=== PATIENT | male | born 1955 | race Caucasian/White ===

== ENCOUNTER 2020-08-18 09:19 | Outpatient (REF) | payer OTHER, SELFPAY ==
[2020-08-18 11:18] LABS: Uric Acid 7.3 mg/dL (3.4-7.0)
[2020-08-18 11:41] LABS: Prostate Specific Antigen Scr 0.24 ng/mL (<0.05-4.0)
== END 2020-08-18 09:20 | disposition home or self-care (01) ==
LOC: HO.LAB 09:19
PROVIDERS: PCP Internal Medicine; Visit Provider Internal Medicine
DX: Z12.5 Encounter for screening for malignant neoplasm of prostate (principal); K21.9 Gastro-esophageal reflux disease without esophagitis; M10.9 Gout, unspecified
CPT/HCPCS: 36415; 84153; 84550

== ENCOUNTER 2020-08-31 12:07 | Outpatient (REF) | payer OTHER, SELFPAY ==
--- NOTE | ~2020-08-31 | XR_ITS ---
EXAMINATION: XR FOOT, RIGHT CLINICAL INFORMATION: Pain in right toes COMPARISON: None TECHNIQUE: AP, lateral, and oblique views of the right foot. FINDINGS: No acute visible fracture or dislocation. Suggestion of a slight cortical erosion at the medial aspect of the first distal metatarsal metadiaphysis. Mild spurring of the dorsal midfoot. Joint spaces and alignment are maintained. Soft tissues are unremarkable. XR/XR foot RT min 3V IMPRESSION: 1. No acute visible fracture or dislocation. 2. Suggestion of a slight cortical erosion at the medial aspect of the first distal metatarsal metadiaphysis.
== END 2020-08-31 12:08 | disposition home or self-care (01) ==
LOC: HO.XRAY 12:07
PROVIDERS: PCP Internal Medicine; Visit Provider Internal Medicine
DX: M79.674 Pain in right toe(s) (principal)
CPT/HCPCS: 73630

== ENCOUNTER 2020-10-21 11:23 | Outpatient (REF) | payer OTHER, SELFPAY ==
[2020-10-21 12:00] LABS: MANUAL DIFF FLAG NO
[2020-10-21 12:09] LABS: Basophils Percent Auto 0.5 % (0-2); Eosinophils Absolute Auto 0.1 X10*3/uL (0.0-0.4); Eosinophils Percent Auto 1.5 % (0-4); Hematocrit 42.1 % (42-52); Hemoglobin 14.5 g/dl (14.0-18.0); Imm Gran Abs Auto 0.02 X10*3/uL (0.00-0.03); Imm Gran Pct Auto 0.3 % (0.0-0.4); Lymphocytes Absolute Auto 1.9 X10*3/uL (1.2-4.9); Lymphocytes Percent Auto 31.4 % (20-40); Mean Corpuscular HGB Conc 34.4 g/dl (31.0-36.0); Mean Corpuscular Hemoglobin 31.8 pg (27.0-33.0); Mean Corpuscular Volume 92.3 fL (80-98); Mean Platelet Volume 10.3 fL (9.4-12.4); Monocytes Absolute Auto 0.4 X10*3/uL (0.1-1.2); Monocytes Percent Auto 6.2 % (2-11); Neutrophils Absolute Auto 3.6 X10*3/uL (2.0-8.3); Neutrophils Percent Auto 60.1 % (45-73); Platelet Count 221 X10*3/uL (160-400); Red Blood Count 4.56 X10*6/uL (4.60-5.80); Red Cell Distribution Width 13.5 % (11.0-16.0)
[2020-10-21 12:49] LABS: Free T4 (Free Thyroxine) 0.82 ng/dL (0.71-1.85); Prostate Specific Antigen Scr 0.19 ng/mL (<0.05-4.0); Thyroid Stimulating Hormone 1.04 uIU/mL (0.32-4.0)
[2020-10-21 12:58] LABS: Alanine Aminotransferase 22 U/L (0-40); Albumin Level 4.2 g/dL (3.5-5.0); Alkaline Phosphatase 85 U/L (39-117); Anion Gap 15 (12-20); Aspartate Amino Transferase 17 U/L (5-37); Bilirubin Total 0.9 mg/dL (0.0-1.0); Blood Urea Nitrogen 15 mg/dL (9-16); Calcium 9.4 mg/dL (8.4-10.2); Carbon Dioxide 23 mmol/L (22-29); Chloride 107 mmol/L (96-108); Cholesterol 192 mg/dL; Estimated Glomerular Filt Rate > 60; Glucose Random 94 mg/dL (60-115); HDL Cholesterol 36 mg/dL; LDL Cholesterol Calculated 115 mg/dl; Potassium 4.5 mmol/L (3.3-5.1); Sodium 140 mmol/L (135-145); Total Protein 6.6 g/dL (6.5-8.0); Triglycerides 207 mg/dL; Uric Acid 6.2 mg/dL (3.4-7.0)
[2020-10-21 13:34] LABS: Folate > 20.0 ng/mL (> or = 4.0); Vitamin B12 546 pg/mL (200-900)
== END 2020-10-21 11:24 | disposition home or self-care (01) ==
LOC: HO.LAB 11:23
PROVIDERS: PCP Internal Medicine; Visit Provider Internal Medicine
DX: I10 Essential (primary) hypertension (principal); E78.00 Pure hypercholesterolemia, unspecified; M10.9 Gout, unspecified; Z12.5 Encounter for screening for malignant neoplasm of prostate
CPT/HCPCS: 36415; 80053; 80061; 82607; 82746; 84153; 84439; 84443; 84550; 85025

== ENCOUNTER → 2021-01-07 14:28 | Outpatient (BNVA) | payer OTHER, SELFPAY | PROVIDERS: PCP Internal Medicine; Referring Provider Internal Medicine; Visit Provider Surgery | DX: L72.0 Epidermal cyst (principal) | CPT/HCPCS: 99212 ==

== ENCOUNTER 2021-11-18 08:09 | Outpatient (REF) | payer MEDICARE, SELFPAY ==
[2021-11-18 10:48] LABS: MANUAL DIFF FLAG NO
[2021-11-18 10:59] LABS: Basophils Percent Auto 0.8 % (0-2); Eosinophils Absolute Auto 0.1 X10*3/uL (0.0-0.4); Eosinophils Percent Auto 2.3 % (0-4); Hematocrit 42.2 % (42.0-52.0); Hemoglobin 14.5 g/dl (14.0-18.0); Imm Gran Abs Auto 0.01 X10*3/uL (0.00-0.03); Imm Gran Pct Auto 0.2 % (0.0-0.4); Lymphocytes Absolute Auto 1.9 X10*3/uL (1.2-4.9); Lymphocytes Percent Auto 35.6 % (20-40); Mean Corpuscular HGB Conc 34.4 g/dl (31.0-36.0); Mean Corpuscular Hemoglobin 32.5 pg (27.0-33.0); Mean Corpuscular Volume 94.6 fL (80.0-98.0); Mean Platelet Volume 10.4 fL (9.4-12.4); Monocytes Absolute Auto 0.4 X10*3/uL (0.1-1.2); Monocytes Percent Auto 7.4 % (2-11); Neutrophils Absolute Auto 2.8 x10*3/uL (2.0-8.3); Neutrophils Percent Auto 53.7 % (45-73); Platelet Count 225 X10*3/uL (160-400); Red Blood Count 4.46 X10*6/uL (4.60-5.80); Red Cell Distribution Width 12.8 % (11.0-16.0); White Blood Count 5.3 X10*3/uL (4.8-10.8)
[2021-11-18 11:04] LABS: Alanine Aminotransferase 20 U/L (0-40); Alkaline Phosphatase 81 U/L (39-117); Anion Gap 15 (12-20); Aspartate Amino Transferase 17 U/L (5-37); Bilirubin Total 0.7 mg/dL (0.0-1.0); Blood Urea Nitrogen 19 mg/dL (9-16); Calcium 9.1 mg/dL (8.4-10.2); Carbon Dioxide 26 mmol/L (22-29); Chloride 106 mmol/L (96-108); Cholesterol 227 mg/dL; Estimated Glomerular Filt Rate > 60; Glucose Random 92 mg/dL (60-115); HDL Cholesterol 33 mg/dL; LDL Cholesterol Calculated 146 mg/dl; Potassium 4.7 mmol/L (3.3-5.1); Sodium 142 mmol/L (135-145); Total Protein 6.6 g/dL (6.5-8.0); Triglycerides 240 mg/dL; Uric Acid 8.3 mg/dL (3.4-7.0)
[2021-11-18 11:24] LABS: Free T4 (Free Thyroxine) 0.84 ng/dL (0.71-1.85); Prostate Specific Antigen Scr 0.15 ng/mL (<0.05-4.0); Thyroid Stimulating Hormone 0.91 uIU/mL (0.32-4.0)
[2021-11-18 11:45] LABS: Folate > 20.0 ng/mL (> or = 4.0); Vitamin B12 486 pg/mL (200-900)
== END 2021-11-18 08:10 | disposition home or self-care (01) ==
LOC: HO.10HDL 08:09
PROVIDERS: Visit Provider Internal Medicine
DX: E78.00 Pure hypercholesterolemia, unspecified (principal); Z12.5 Encounter for screening for malignant neoplasm of prostate
CPT/HCPCS: 36415; 80053; 80061; 82607; 82746; 84153; 84439; 84443; 84550; 85025

== ENCOUNTER 2022-05-16 08:36 | Outpatient (REF) | payer BC, SELFPAY ==
[2022-05-16 11:29] LABS: Alanine Aminotransferase 21 U/L (0-40); Alkaline Phosphatase 62 U/L (39-117); Anion Gap 10 (12-20); Aspartate Amino Transferase 14 U/L (5-37); Bilirubin Total 0.7 mg/dL (0.0-1.0); Blood Urea Nitrogen 15 mg/dL (9-16); Calcium 8.8 mg/dL (8.4-10.2); Carbon Dioxide 29 mmol/L (22-29); Chloride 110 mmol/L (96-108); Cholesterol 210 mg/dL; Estimated Glomerular Filt Rate > 60; Glucose Random 95 mg/dL (60-115); HDL Cholesterol 32 mg/dL; LDL Cholesterol Calculated 144 mg/dl; Potassium 4.5 mmol/L (3.3-5.1); Sodium 144 mmol/L (135-145); Total Protein 6.2 g/dL (6.5-8.0); Triglycerides 173 mg/dL; Uric Acid 6.5 mg/dL (3.4-7.0)
== END 2022-05-16 08:37 | disposition home or self-care (01) ==
LOC: HO.10HDL 08:36
PROVIDERS: Visit Provider Internal Medicine
DX: E78.00 Pure hypercholesterolemia, unspecified (principal); M10.9 Gout, unspecified
CPT/HCPCS: 36415; 80053; 80061; 84550

== ENCOUNTER 2022-07-05 10:11 | Outpatient (REF) | payer MEDICARE, SELFPAY ==
--- NOTE | ~2022-07-05 | XR_ITS ---
EXAMINATION: Chest and lumbar spine. CLINICAL INDICATIONS: Pain in right shoulder and low back pain. COMPARISON: Chest x-ray 09/20/2018. TECHNIQUE: Chest 2 views. Lumbar spine 3 views. FINDINGS: Chest: The lungs are well-expanded with platelike atelectasis in the lingula. Rest lungs are clear. Heart size and pulmonary vascularity is normal. No gross bony abnormality seen. LUMBAR SPINE: There is normal lumbar lordosis. There is grade 1 anterolisthesis L5 over S1. Rest of the vertebral alignment and vertebral heights are normal. Mild loss of L5-S1 disc height is seen. No aggressive lytic or sclerotic process seen. XR/XR chest 2V IMPRESSION: Platelike atelectasis in the lingula. Grade 1 anterolisthesis L5 over S1 with degenerative disc changes at L5-S1 disc level.
--- NOTE | ~2022-07-05 | XR_ITS ---
EXAMINATION: Chest and lumbar spine. CLINICAL INDICATIONS: Pain in right shoulder and low back pain. COMPARISON: Chest x-ray 09/20/2018. TECHNIQUE: Chest 2 views. Lumbar spine 3 views. FINDINGS: Chest: The lungs are well-expanded with platelike atelectasis in the lingula. Rest lungs are clear. Heart size and pulmonary vascularity is normal. No gross bony abnormality seen. LUMBAR SPINE: There is normal lumbar lordosis. There is grade 1 anterolisthesis L5 over S1. Rest of the vertebral alignment and vertebral heights are normal. Mild loss of L5-S1 disc height is seen. No aggressive lytic or sclerotic process seen. XR/XR lumbar spine 2-3V IMPRESSION: Platelike atelectasis in the lingula. Grade 1 anterolisthesis L5 over S1 with degenerative disc changes at L5-S1 disc level.
== END 2022-07-05 10:12 | disposition home or self-care (01) ==
LOC: HO.XRAY 10:11
PROVIDERS: PCP Internal Medicine; Visit Provider Internal Medicine
DX: M25.511 Pain in right shoulder (principal); M54.50 Low back pain, unspecified
CPT/HCPCS: 71046; 72100

== ENCOUNTER 2022-08-08 13:59 | Outpatient (RCR) | payer MEDICARE, SELFPAY ==
--- NOTE | 2022-08-08 17:22 | MHC.PT.EP ---
[facility] [place] [facility] [place] [facility] [place] [facility] [address] Gregorio Ramirez [address] [phone] F: [phone] F: [phone] F: [phone] F: [phone] Physical Therapy Plan of Care Date of Evaluation: Date of Surgery: N/A Diagnosis: pain in right shoulder (RL) Assessment: pt is a 67 y/o male presenting to physical therapy w/ referring diagnosis of M25.511 pain in right shoulder. pt's signs and symptoms may be indicative of OA versus referred pain from RTC. Impairments include pain, decreased range of motion, decreased strength, impaired functional mobility, impaired postural awareness, and altered ambulation mechanics. pt is a good candidate for skilled PT due to age, potential remediation of impairments, typical disease/condition progression and prognosis, comorbidities, and motivation. pt would benefit from skilled PT intervention to provide a tailored strengthening and stretching exercise program, functional training, gait training, postural re-training, neuromuscular re-education, modalities as needed for pain, equipment safety demonstration. Frequency and Duration: The patient will be seen 2x/wk for 4 wks Short Term Goals: pt will be I w/ HEP to promote self-management of condition. pt will improve R shoulder flexion by 10* to promote ease in reaching for objects on higher shelves. [employer] Sdet Goals: pt will improve R deltoid strength to 5/5 to promote ease in upper body ADLs. pt will demonstrate coordinated breath w/ lifting to promote improved neuromuscular coordination. Treatment Plan: Modalities to reduce pain, spasms and effusion. Manual therapy to restore motion and function. Therapeutic exercise to improve strength and flexibility. Neuromuscular re-education for posture and balance. Therapeutic activities to return to functional activities of daily living. Electronically signed by: Tammy Dos Santos PT, DPT Please sign and return to therapist. Thank you for your referral.
--- NOTE | 2022-08-15 10:21 | MHC.PT.DC ---
[facility] [place] Office [place] Office [place] Office [address] Gregorio Ramirez [address] [facility] [phone] F: [phone] F: [phone] F: [phone] F: [phone] Physical Therapy Discharge Report Diagnosis: pain in right shoulder (RL) Date of Surgery: N/A Date of Evaluation: 08/08/22 Date of Discharge: 08/15/22 Treatments to Date: 1 Cancellations to Date: 0 No Shows to Date: 0 Discharge Status: Patient Elected to Stop Discharge Summary: The patient attended his initial evaluation, scheduled follow-up appointments, then discharged himself due to high co-pay. He is discharged from this physical therapy plan of care per his request. Electronically signed by: Tammy Dos Santos PT, DPT Please sign and return to therapist. Thank you for your referral.
== END 2022-08-15 10:21 | disposition home or self-care (01) ==
LOC: HO.PT 13:59
PROVIDERS: PCP Internal Medicine; Visit Provider Internal Medicine
DX: M25.511 Pain in right shoulder (principal)
CPT/HCPCS: 97112; 97162

== ENCOUNTER 2022-08-30 08:13 | Outpatient (REF) | payer MEDICARE, SELFPAY ==
[2022-08-30 11:04] LABS: Alanine Aminotransferase 16 U/L (0-40); Albumin Level 3.8 g/dL (3.5-5.0); Alkaline Phosphatase 72 U/L (39-117); Anion Gap 11 (12-20); Aspartate Amino Transferase 14 U/L (5-37); Bilirubin Total 0.8 mg/dL (0.0-1.0); Blood Urea Nitrogen 15 mg/dL (9-16); Carbon Dioxide 26 mmol/L (22-29); Chloride 110 mmol/L (96-108); Cholesterol 180 mg/dL; Estimated Glomerular Filt Rate > 60; Glucose Random 91 mg/dL (60-115); HDL Cholesterol 27 mg/dL; LDL Cholesterol Calculated 122 mg/dl; Potassium 4.2 mmol/L (3.3-5.1); Sodium 143 mmol/L (135-145); Total Protein 6.4 g/dL (6.5-8.0); Triglycerides 157 mg/dL
== END 2022-08-30 08:14 | disposition home or self-care (01) ==
LOC: HO.10HDL 08:13
PROVIDERS: Visit Provider Internal Medicine
DX: E78.00 Pure hypercholesterolemia, unspecified (principal)
CPT/HCPCS: 36415; 80053; 80061

== ENCOUNTER 2023-02-28 08:40 | Outpatient (REF) | payer BC, SELFPAY ==
[2023-02-28 10:45] LABS: MANUAL DIFF FLAG NO
[2023-02-28 10:47] LABS: Basophils Percent Auto 0.7 % (0-2); Eosinophils Absolute Auto 0.2 X10*3/uL (0.0-0.4); Eosinophils Percent Auto 2.7 % (0-4); Hemoglobin 14.9 g/dl (14.0-18.0); Imm Gran Abs Auto 0.01 X10*3/uL (0.00-0.03); Imm Gran Pct Auto 0.2 % (0.0-0.4); Lymphocytes Absolute Auto 2.2 X10*3/uL (1.2-4.9); Lymphocytes Percent Auto 36.2 % (20-40); Mean Corpuscular HGB Conc 34.7 g/dl (31.0-36.0); Mean Corpuscular Hemoglobin 32.3 pg (27.0-33.0); Mean Corpuscular Volume 93.1 fL (80.0-98.0); Mean Platelet Volume 10.5 fL (9.4-12.4); Monocytes Absolute Auto 0.4 X10*3/uL (0.1-1.2); Monocytes Percent Auto 5.8 % (2-11); Neutrophils Absolute Auto 3.3 x10*3/uL (2.0-8.3); Neutrophils Percent Auto 54.4 % (45-73); Platelet Count 223 X10*3/uL (160-400); Red Blood Count 4.62 X10*6/uL (4.60-5.80); Red Cell Distribution Width 12.7 % (11.0-16.0)
[2023-02-28 11:06] LABS: Alanine Aminotransferase 17 U/L (0-40); Alkaline Phosphatase 81 U/L (39-117); Anion Gap 14 (12-20); Aspartate Amino Transferase 17 U/L (5-37); Bilirubin Total 0.7 mg/dL (0.0-1.0); Blood Urea Nitrogen 16 mg/dL (9-16); Calcium 9.2 mg/dL (8.4-10.2); Carbon Dioxide 26 mmol/L (22-29); Chloride 109 mmol/L (96-108); Cholesterol 156 mg/dL (<200); Estimated Glomerular Filt Rate > 60; Glucose Random 92 mg/dL (60-115); HDL Cholesterol 32 mg/dL (>40); LDL Cholesterol Calculated 96 mg/dL (<100); Potassium 4.1 mmol/L (3.3-5.1); Sodium 145 mmol/L (135-145); Total Protein 6.7 g/dL (6.5-8.0); Triglycerides 142 mg/dL (<150)
[2023-02-28 11:22] LABS: Free T4 (Free Thyroxine) 0.78 ng/dL (0.71-1.85); Thyroid Stimulating Hormone 1.06 uIU/mL (0.32-4.0)
[2023-02-28 11:36] LABS: Folate 13.6 ng/mL (> or = 4.0); Prostate Specific Antigen Scr 0.15 ng/mL (<0.05-4.0)
[2023-03-02 14:44] LABS: Vitamin B12 502 pg/mL (200-900)
== END 2023-02-28 08:41 | disposition home or self-care (01) ==
LOC: HO.10HDL 08:40
PROVIDERS: Visit Provider Internal Medicine
DX: Z12.5 Encounter for screening for malignant neoplasm of prostate (principal); E78.00 Pure hypercholesterolemia, unspecified
CPT/HCPCS: 36415; 80053; 80061; 82607; 82746; 84153; 84439; 84443; 85025

== ENCOUNTER 2023-03-03 10:46 | Outpatient (AMB) | payer BC, SELFPAY ==
[2023-03-03 10:47] VITALS: BP 130/80; PULSE 86; O2SAT 98; BMI 27.3
--- NOTE | 2023-03-03 10:48 | MHC.PC.OV ---
Vital Signs 03/03/23 10:47 Height 5 ft 7 in Weight 174 lb 0.8 oz BMI 27.3 BP 130/80 Blood Pressure Location Lt brachial Position Sitting Pulse 86 Pulse Source Pulse Oximeter Pulse Oximetry (%) 98 Oxygen Delivery Method Room Air Intake Visit Reasons: Hypertension Allergies mold Allergy (Mild, Verified 03/03/23 10:48) ITCHING penicillin V Allergy (Unknown, Verified 03/03/23 10:48) Unknown Tobacco use date assessed: 03/03/23 Fall risk assessment: No Falls in past year Last assessed Fall Risk: 03/03/23 HPI Hypertension HPI Details 67-year-old overweight male with a history of asthma hypercholesterolemia hypertension GERD depression coming in for follow-up. Last seen August 2022 for physical exam. Patient's colonoscopy is up-to-date [facility] Medical History (Updated 06/28/22 @ 13:31 by Cely Beatty MD) Annual physical exam Gout GERD (gastroesophageal reflux disease) Hypertension Hypercholesterolemia Anxiety and depression Asthma Surgical History History of surgery History of tonsillectomy Family History (Updated 08/25/21 @ 09:20 by Cely Beatty MD) Brother No problems noted. Father Heart attack Mother Heart attack, Onset Age: 90 Social History (Updated 09/01/22 @ 10:35 by Cely Beatty MD) Housing: House Alcohol intake: current Alcohol intake frequency: holidays/special occasions only Patient Tobacco Use Status: Never used Tobacco e-Cigarette/Vaping Use: Never Used Second Hand Smoke Exposure: No service: No Current occupational status: retired Cognitive needs: No Hearing needs: No Vision needs: Yes Questionnaire Thrive Questionnaire Date Thrive assessed: 05/31/22 AUDIT C Alcohol Use Questionnaire (AUDIT-C) 1. How often do you have a drink containing alcohol?: Monthly or less 2. How many drinks containing alcohol do you have on a typical day when you are drinking?: 1 or 2 3. How often do you have six or more drinks on one occasion?: Never Total Score: 1 HORTENSIA-7 AMB Questionnaire HORTENSIA-7 Date HORTENSIA - 7 assessed: 05/31/22 Source: Developed by Drs. Stanley Shen, Jyoti Velazquez, Rodríguez Sullivan and colleagues, with an educational julio césar from [employer]. Physical exam (Primary Care) Vital Signs: Last Vital Signs Pulse 86 03/03/23 10:47 BP 130/80 03/03/23 10:47 Pulse Ox 98 03/03/23 10:47 Oxygen Delivery Method Room Air 03/03/23 10:47 BMI result Body Mass Index 27.3 Tobacco/Smoking Status: Tobacco use Status Tobacco use date assessed 03/03/23 03/03/23 10:48 Patient Tobacco Use Status Never used Tobacco 03/03/23 10:48 e-Cigarette/Vaping Use Never Used 03/03/23 10:48 Thrive Assessment: Date of Thrive Assessment Date Thrive assessed 05/31/22 03/03/23 10:48 Const General: alert; No acute distress Eyes Conjunctivae: conjunctivae normal Resp Auscultation: clear to auscultation bilaterally Cardio Rate: regular rate Rhythm: regular rhythm GI Inspection: Yes normal to inspection Extrem General: Yes normal to inspection and No edema Assessment and Plan Assessment & Plan (1) Hypercholesterolemia: Code(s): E78.00 - Pure hypercholesterolemia, unspecified Plan: Avoid fried foods, chicken skin, eggs, butter margarine, pastries and meat. Be it pork or beef they have a lot of cholesterol LDL goal of less than 130 and triglyceride of less than 150 patient takes pravastatin 80 mg once a (2) Hypertension: Code(s): I10 - Essential (primary) hypertension Qualifiers: Hypertension type: essential hypertension Qualified Code(s): I10 - Essential (primary) hypertension Plan: Continue with blood pressure medication. Decrease salt intake and exercise patient is taking lisinopril 30 mg once a day (3) GERD (gastroesophageal reflux disease): Code(s): K21.9 - Gastro-esophageal reflux disease without esophagitis Qualifiers: Esophagitis presence: without esophagitis Qualified Code(s): K21.9 - Gastro-esophageal reflux disease without esophagitis Plan: Avoid the foods that causes that usually spicy foods, tomato products, juices, coffee, soda and foods that your sensitive to. After eating do not lie down, allow 3-4 hours before in lie down. And keep the head of bed above 30 degrees to avoid the acid from going up. On omeprazole (4) Depression, major, recurrent: Comment: [facility] Dr. Miramontes and mary [place]08/2019 Code(s): F33.9 - Major depressive disorder, recurrent, unspecified Plan: Continue with counseling and therapy Coding Level of Care Code Est Pt Level 4 (85574) Diagnoses Hypercholesterolemia E78.00 Essential hypertension I10 Hypertension type: essential hypertension Gastroesophageal reflux disease without esophagitis K21.9 Esophagitis presence: without esophagitis Depression, major, recurrent F33.9
== END 2023-03-03 11:36 | disposition home or self-care (01) ==
PROVIDERS: PCP Internal Medicine; Visit Provider Internal Medicine
DX: E78.00 Pure hypercholesterolemia, unspecified (principal); I10 Essential (primary) hypertension; K21.9 Gastro-esophageal reflux disease without esophagitis; F33.9 Major depressive disorder, recurrent, unspecified
CPT/HCPCS: 99214

== ENCOUNTER 2023-09-05 11:01 | Outpatient (AMB) | payer BC, SELFPAY ==
[2023-09-05 11:11] VITALS: BP 122/78; PULSE 72; O2SAT 95; BMI 26.6
--- NOTE | 2023-09-05 11:11 | MHC.PC.OV ---
Vital Signs 09/05/23 11:11 Height 5 ft 7 in Weight 170 lb BMI 26.6 BP 122/78 Blood Pressure Location Lt brachial Position Sitting Pulse 72 Pulse Source Pulse Oximeter Pulse Oximetry (%) 95 Oxygen Delivery Method Room Air Intake Visit Reasons: Annual exam Allergies mold Allergy (Mild, Verified 09/05/23 11:11) ITCHING penicillin V Allergy (Unknown, Verified 09/05/23 11:11) Unknown Medication List - Last Reconciled 09/05/23 by Cely Beatty MD albuterol sulfate 90 mcg/actuation (Ventolin HFA) 2 puffs inhalation Q6H blood pressure monitor (Blood Pressure Kit) As directed cholecalciferol (vitamin D3) 125 mcg PO DAILY fluticasone furoate 200 mcg/actuation (Arnuity Ellipta) 1 inh inhalation DAILY fluticasone propionate 50 mcg/actuation 2 sprays intranasal DAILY lisinopril 30 mg PO DAILY 30 days loratadine (Claritin) 10 mg PO DAILY multivitamin 1 tab PO BID paroxetine HCl ER (Paxil CR) 25 mg PO DAILY pravastatin 80 mg PO DAILY 30 days Tobacco use date assessed: 09/05/23 Fall risk assessment: No Falls in past year Last assessed Fall Risk: 09/05/23 Dental Screening Dental Screen Date: 09/05/23 Did you have a dental visit in the last 12 months?: Yes Did you have a dental problem in the last 6 months where you did not have access to dental care?: No Was dental information given to patient?: Patient has dentist HPI Annual exam HPI Details 68-year-old overweight male with hypertension hypercholesterolemia GERD and depression last seen in 02/22/2023. Patient's last colonoscopy was 2018. [facility] Medical History (Updated 04/21/23 @ 18:02 by Cely Beatty MD) Annual physical exam Gout GERD (gastroesophageal reflux disease) Hypertension Hypercholesterolemia Anxiety and depression Asthma Surgical History History of surgery History of tonsillectomy Family History (Updated 08/25/21 @ 09:20 by Cely Beatty MD) Brother No problems noted. Father Heart attack Mother Heart attack, Onset Age: 90 Social History (Updated 09/05/23 @ 11:44 by Cely Beatty MD) Housing: House Alcohol intake: current Alcohol intake frequency: holidays/special occasions only Comment: once a month 2-4 drinks Patient Tobacco Use Status: Never used Tobacco e-Cigarette/Vaping Use: Never Used Second Hand Smoke Exposure: No service: No Current occupational status: retired Cognitive needs: No Hearing needs: No Vision needs: Yes Questionnaire PHQ-9 Over the last 2 weeks, how often have you been bothered by any of the following problems? 1. Little interest or pleasure in doing things: not at all 2. Feeling down, depressed, or hopeless: not at all 3. Trouble falling or staying asleep, or sleeping too much: not at all 4. Feeling tired or having little energy: not at all 5. Poor appetite or overeating: not at all 6. Feeling bad about yourself - or that you are a failure or have let yourself or your family down: not at all 7. Trouble concentrating on things, such as reading the newspaper or watching television: not at all 8. Moving or speaking so slowly that other people could have noticed. Or the opposite - being so fidgety or restless that you have been moving around a lot more than usual: not at all 9. Thoughts that you would be better off or of hurting yourself in some way: not at all Total score: 0 Depression Screening Interpretation: Negative Depression Screening Done: Yes Source: Developed by Drs. Stanley Shen, Jyoti Velazquez, Rodríguez Sullivan and colleagues, with an educational julio césar from [employer]. Thrive Questionnaire Date Thrive assessed: 09/05/23 I am a: Patient What is your living situation today?: I have a steady place to live Within the past 12 months, did the food you bought not last and you didn't have the money to get more?: Never true Within the past 12 months, did you worry whether your food would run out before you got money to buy more?: Never true Do you have trouble paying for medicines?: No Do you have trouble getting transportation to medical appointments?: No Do you have trouble paying your heating and electricity bill?: No Do you have trouble taking care of your child, family member or friend?: No Do you have trouble with day-to-day activities such as bathing, preparing meals, shopping, managing finances, etc.?: No Are you currently unemployed and looking for a job?: No Are you interested in more education?: No Currently or been in a relationship where the following occur: No concerns reported THRIVE Score: 0 AUDIT C Alcohol Use Questionnaire (AUDIT-C) 1. How often do you have a drink containing alcohol?: Monthly or less 2. How many drinks containing alcohol do you have on a typical day when you are drinking?: 1 or 2 3. How often do you have six or more drinks on one occasion?: Never Total Score: 1 HORTENSIA-7 AMB Questionnaire HORTENSIA-7 Date HORTENSIA - 7 assessed: 09/05/23 Feeling nervous, anxious, or on edge: 2 = More than half the days Not being able to stop or control worryin = Not at all Worrying too much about different things: 0 = Not at all Trouble relaxin = Not at all Being so restless that it is hard to sit still: 0 = Not at all Becoming easily annoyed or irritable: 0 = Not at all Feeling afraid as if something awful might happen: 0 = Not at all Total HORTENSIA-7 score (0-4 normal; 5-9 mild; 10-14 moderate; 15-21 severe): 2 Source: Developed by Drs. Stanley Shen, Jyoti Velazquez, Rodríguez Sullivan and colleagues, with an educational julio césar from [employer]. Review of Systems Const Denies poor appetite and Denies weakness Eyes Denies no additional complaints ENT Reports Normal hearing present, Denies dizziness, Denies nasal congestion, Denies tinnitus and Denies sore throat Card Denies chest pain, Denies syncope, Denies rapid heart rate and Denies dyspnea Resp Denies cough and Denies dyspnea GI Denies change in stool character, Reports constipation, Denies diarrhea, Denies nausea and Denies vomiting Denies dysuria and Denies urinary frequency Neuro Reports Normal hearing present, Denies confusion, Denies dizziness, Denies syncope and Denies weakness Psych Denies confusion Physical exam (Primary Care) Vital Signs: Last Vital Signs Pulse 72 09/05/23 11:11 BP 122/78 09/05/23 11:11 Pulse Ox 95 09/05/23 11:11 Oxygen Delivery Method Room Air 09/05/23 11:11 BMI result Body Mass Index 26.6 Tobacco/Smoking Status: Tobacco use Status Tobacco use date assessed 09/05/23 09/05/23 11:16 Patient Tobacco Use Status Never used Tobacco 09/05/23 11:16 e-Cigarette/Vaping Use Never Used 09/05/23 11:16 PHQ-9: PHQ-9 Score PHQ-9: Total score 0 09/05/23 11:16 Depression Screening Interpretation: Negative Thrive Assessment: Date of Thrive Assessment Date Thrive assessed 09/05/23 09/05/23 11:16 Currently or been in a relationship where the following occur: No concerns reported Const General: No confusion Orientation/consciousness: No confusion HENMT Head: Yes normocephalic Ears: external ears normal and TM's normal bilaterally Face and sinus: Yes normal facial exam Mouth: moist mucous membranes Throat: Yes tonsils normal Eyes Conjunctivae: conjunctivae normal Pupils: Equal, round and reactive pupils present and Pupil accommodation reflex normal Direct Ophthalmoscopy: normal light reflex Neck Neck: No lymphadenopathy Thyroid: Thyroid normal Chest Chest palpation & inspection: normal inspection of the chest Resp Effort & Inspection: normal respiratory effort and no audible wheezes Auscultation: clear to auscultation bilaterally, no crackles, no wheezes and lung sounds not diminished Cardio Rate: regular rate Rhythm: regular rhythm Peripheral pulses: radial pulses present and dorsalis pedis present GI Other: colon test 11/2023 Palpation (GI): no masses Auscultation: normal bowel sounds and normoactive bowel sounds Rectal Exam - Male: Yes deferred Skin General skin exam: no rashes or lesions noted Rashes: no rashes Neuro General: No confusion Cranial nerves: Yes Equal, round and reactive pupils present and Yes Normal hearing present Cognition (Neuro): normal cognition Gait exam (Neuro): Normal gait present Motor exam (neuro): 5/5 motor strength present throughout Deep tendon reflexes (DTR's): Right brachioradialis reflex intensity grade: 2+, Left brachioradialis reflex intensity grade: 2+, Right patellar reflex intensity grade: 2+ and Left patellar reflex intensity grade: 2+ Extrem General: No edema Assessment and Plan Assessment & Plan (1) Annual physical exam: Code(s): Z00.00 - Encounter for general adult medical examination without abnormal findings Plan: Patient is advised to eat healthy, keep well hydrated, keep active and have adequate sleep. (2) Hypertension: Code(s): I10 - Essential (primary) hypertension Qualifiers: Hypertension type: essential hypertension Qualified Code(s): I10 - Essential (primary) hypertension Plan: Continue with blood pressure medication. Decrease salt intake and exercise on lisinopril 30 mg once a day (3) Hypercholesterolemia: Code(s): E78.00 - Pure hypercholesterolemia, unspecified Plan: Avoid fried foods, chicken skin, eggs, butter margarine, pastries and meat. Be it pork or beef they have a lot of cholesterol LDL goal of less than 130 and triglyceride of less than 150 patient's last blood work was 02/22/2023 (4) Asthma: Comment: PFT December 2009 Code(s): J45.909 - Unspecified asthma, uncomplicated Qualifiers: Asthma severity: mild Asthma persistence: intermittent Asthma complication type: uncomplicated Qualified Code(s): J45.20 - Mild intermittent asthma, uncomplicated Plan: Continue with the inhalers albuterol and Arnuity (5) Depression, major, recurrent: Comment: [facility] Dr. Miramontes and mary [place]08/2019 Code(s): F33.9 - Major depressive disorder, recurrent, unspecified Plan: Continue with counseling and therapy Orders: Orders Complete Blood Count Auto Diff 6 Months E78.00 - Pure hypercholesterolemia, unspecified Comprehensive Met. Panel 6 Months E78.00 - Pure hypercholesterolemia, unspecified Free T4 (Free Thyroxine) 6 Months E78.00 - Pure hypercholesterolemia, unspecified Thyroid Stimulating Hormone 6 Months E78.00 - Pure hypercholesterolemia, unspecified Lipid Panel 6 Months E78.00 - Pure hypercholesterolemia, unspecified Vitamin B12 and Folate 6 Months E78.00 - Pure hypercholesterolemia, unspecified Prostate Specific Antigen Scr 6 Months E78.00 - Pure hypercholesterolemia, unspecified Coding Level of Care Code Est Pt Prev Care >65y(30690) Diagnoses Annual physical exam Z00.00 Essential hypertension I10 Hypertension type: essential hypertension Hypercholesterolemia E78.00 Mild intermittent asthma without complication J45.20 Asthma severity: mild Asthma persistence: intermittent Asthma complication type: uncomplicated Depression, major, recurrent F33.9
== END 2023-09-05 11:58 | disposition home or self-care (01) ==
PROVIDERS: PCP Internal Medicine; Visit Provider Internal Medicine
DX: Z00.00 Encounter for general adult medical examination without abnormal findings (principal); F33.9 Major depressive disorder, recurrent, unspecified; I10 Essential (primary) hypertension; E78.00 Pure hypercholesterolemia, unspecified; J45.20 Mild intermittent asthma, uncomplicated
CPT/HCPCS: 99397

== ENCOUNTER 2023-11-10 09:10 | Day surgery (SDC) | payer MEDICARE, SELFPAY ==
[2023-11-09 07:44] VITALS: BMI 26.8
--- NOTE | 2023-11-09 12:47 | HO.ANESPROP2 ---
Documented by User: Kizzy Ariza NP 11/09/23 12:47 HPI - Anesthesia Eval Consult details Narrative: 68yo M for Colonoscopy PMFSH Active Problems Active Problems: All Active Problems COVID-19 virus infection (Acute) Plantar fasciitis, bilateral (Acute) Right shoulder pain (Acute) Low back pain (Acute) Annual physical exam (Acute) Epidermal inclusion cyst (Acute) Skin lesion (Acute) Depression, major, recurrent (Acute) Toe pain, right (Acute) Gout (Acute) Carpal tunnel syndrome (Acute) GERD (gastroesophageal reflux disease) (Acute) Hypertension (Acute) Hypercholesterolemia (Acute) Asthma (Acute) Past Medical History Medical History Hiatal hernia Tubular adenoma Kidney stones Annual physical exam Gout GERD (gastroesophageal reflux disease) Hypertension Hypercholesterolemia Anxiety and depression Asthma Family History Family History Brother No problems noted. Father Heart attack Mother Heart attack, Onset Age: 90 Surgical History Surgical History History of esophagogastroduodenoscopy (EGD) H/O colonoscopy History of surgery History of tonsillectomy Social History Social History Housing: House Alcohol intake: current Alcohol intake frequency: does not drink Comment: once a month 2-4 drinks Patient Tobacco Use Status: Former Tobacco user Tobacco use type: Cigar e-Cigarette/Vaping Use: Never Used Second Hand Smoke Exposure: No Have you been hit, kicked, punched, or otherwise hurt by someone within the past year? If so, by whom?: No Are you DNR?: No Advance Directives: No Advance Directives Information Provided: Yes service: No Current occupational status: retired Cognitive needs: No Hearing needs: No Vision needs: Yes Meds Allergies Allergy/AdvReac Type Severity Reaction Status Date / Time mold Allergy Mild ITCHING Verified 09/05/23 11:11 penicillin V Allergy Unknown Unknown Verified 09/05/23 11:11 Home Medications ?Medication ?Instructions ?Recorded ?Confirmed ?Last Taken ?Type paroxetine HCl 25 mg 25 mg PO DAILY 12/03/20 11/09/23 Unknown History tablet,extended release 24 hr (Paxil CR) lisinopril 30 mg tablet 30 mg PO DAILY 11/09/23 11/09/23 Unknown History loratadine 10 mg tablet (Claritin) 10 mg PO DAILY 11/09/23 11/09/23 Unknown History Exam Height,Weight and Vital Signs: Height 5 ft 7 in Weight 77.564 kg Assessment and Plan Assessment Anesthesia Assessment: Chart Reviewed Documented by User: Gretchen Benavides MD 11/10/23 10:45 PMFSH Past Medical History Medical History Hiatal hernia Tubular adenoma Kidney stones Annual physical exam Gout GERD (gastroesophageal reflux disease) Hypertension Hypercholesterolemia Anxiety and depression Asthma Family History Family History Brother No problems noted. Father Heart attack Mother Heart attack, Onset Age: 90 Family history of problems with anesthesia: No Surgical History Surgical History History of esophagogastroduodenoscopy (EGD) H/O colonoscopy History of surgery History of tonsillectomy History of Problems with Anesthesia: No Social History Social History Housing: House Alcohol intake: current Alcohol intake frequency: does not drink Comment: once a month 2-4 drinks Patient Tobacco Use Status: Former Tobacco user Tobacco use type: Cigar e-Cigarette/Vaping Use: Never Used Second Hand Smoke Exposure: No Have you been hit, kicked, punched, or otherwise hurt by someone within the past year? If so, by whom?: No Are you DNR?: No Advance Directives: No Advance Directives Information Provided: Yes service: No Current occupational status: retired Cognitive needs: No Hearing needs: No Vision needs: Yes Meds Allergies Allergy/AdvReac Type Severity Reaction Status Date / Time mold Allergy Mild ITCHING Verified 09/05/23 11:11 penicillin V Allergy Unknown Unknown Verified 09/05/23 11:11 Home Medications ?Medication ?Instructions ?Recorded ?Confirmed ?Last Taken ?Type paroxetine HCl 25 mg 25 mg PO DAILY 12/03/20 11/09/23 Unknown History tablet,extended release 24 hr (Paxil CR) lisinopril 30 mg tablet 30 mg PO DAILY 11/09/23 11/09/23 Unknown History loratadine 10 mg tablet (Claritin) 10 mg PO DAILY 11/09/23 11/09/23 Unknown History Exam Airway Mallampati Class: II TM Dist: >3cm Neck ROM: Full Heart: rrr Lungs: cta Assessment and Plan Assessment Anesthesia Assessment: Anesthesia Plan Discussed Final Anesthetic Review Family History of Problems with Anesthesia: No History of Problems with Anesthesia: No NPO: Yes ASA Class: III Final Preanesthetic Review: No Changes in Pt Med Stat, Meds/Allgs Chart Reviewed, Consent Obtained/Reviewed and Anes Risks/Benef Reviewed Patient Risk: Intermediate Procedure Risk: Low Anesthetic Plan Anesthetic Plan: MAC: Disposition: Standard PACU
[2023-11-10 09:52] VITALS: BP 146/87; PULSE 65; RESP 17; TEMP 36.9; O2SAT 98; BMI 27.0
[2023-11-10] MEDS: Lactated Ringers 1,000 ML 100 ML IVCONT (10:14)
[2023-11-10 12:41] VITALS: BP 112/64; PULSE 72; RESP 16; TEMP 36.2; O2SAT 98
--- NOTE | 2023-11-10 12:47 | P.BOP_ITS ---
Brief Operative Note Date of Service: 11/10/23 Pre-op diagnosis: Screening and History of polyp Post-op diagnosis: other (Diverticulosis) Procedure: Colonoscopy to the cecum Surgeon: Stanley Mark MD Anesthesia: MAC Was an Kitchen And Bath Designer used for this Procedure?: No Estimated blood loss (mL): 0 Pathology: none sent Condition: stable Disposition: PACU
[2023-11-10 12:56] VITALS: BP 127/75; PULSE 65; RESP 20; TEMP 36.6; O2SAT 99
--- NOTE | 2023-11-10 13:15 | OP_ITS ---
DATE OF SERVICE: 11/10/2023 SURGEON: Stanley Mark MD INDICATIONS: The patient presents for followup of colorectal cancer screening and personal history of tubular adenoma of the colon. Full consent has been obtained from him for this, including risks of bleeding and perforation. PREOPERATIVE DIAGNOSIS: POSTOPERATIVE DIAGNOSIS: PROCEDURE PERFORMED: Colonoscopy to the cecum. ESTIMATED BLOOD LOSS: COMPLICATIONS: ANESTHESIA: Monitored anesthesia care. ASSISTANTS: SPECIMENS: PREOPERATIVE DIAGNOSES: Colorectal cancer screening and personal history of tubular adenoma of the colon. POSTOPERATIVE DIAGNOSES: Colorectal cancer screening, personal history of tubular adenoma of the colon, diverticulosis, and internal hemorrhoids. DESCRIPTION OF PROCEDURE: The patient was placed in the left lateral decubitus position. The digital rectal exam revealed no abnormalities. The Olympus video pediatric colonoscope was then entered into the rectum and advanced easily to the cecum. Once in the cecum, I did identify normal-appearing cecal pouch with appendiceal orifice and a normal-appearing ileocecal valve. This did require some irrigation and suctioning, but good visualization was obtained and there did not appear to be any mucosal abnormalities. The ileocecal valve appeared normal. There was transillumination of light deep in the right lower quadrant. The scope was then slowly withdrawn assessing all mucosal surfaces carefully. For the most part, preparation was good throughout the colon, but did require a lot of irrigation and suctioning. I did not visualize any sign of polyps, colitis, or angiodysplasias. There was a mild amount of sigmoid diverticulosis. In the rectum, scope was retroflexed, visualizing some small internal hemorrhoids, but no other pathology. The rectal mucosa appeared normal. The scope was straightened and withdrawn from the patient. He tolerated the procedure well and was returned to the recovery area in stable condition. IMPRESSION: 1. Diverticulosis. 2. Internal hemorrhoids. PLAN: I would recommend a repeat colonoscopy in 5 years for further screening. He will, otherwise, see me on a p.r.n. basis. MD FARHAD Nelson/GT / [id number]
== END 2023-11-10 13:19 | disposition home or self-care (01) ==
PROVIDERS: PCP Internal Medicine; Visit Provider Internal Medicine
PROC: 0DJD8ZZ Inspection of Lower Intestinal Tract, Via Natural or Artificial Opening Endoscopic (ICD-10-PCS; CPT 45378; principal; 2023-11-10 11:20)
DX: Z12.11 Encounter for screening for malignant neoplasm of colon (principal); Z86.010 Personal history of colon polyps; K57.30 Diverticulosis of large intestine without perforation or abscess without bleeding; K64.8 Other hemorrhoids; K21.9 Gastro-esophageal reflux disease without esophagitis; I10 Essential (primary) hypertension; M10.9 Gout, unspecified; J45.909 Unspecified asthma, uncomplicated; F41.8 Other specified anxiety disorders; Z79.51 Long term (current) use of inhaled steroids; Z79.899 Other long term (current) drug therapy; Z88.0 Allergy status to penicillin; Z87.891 Personal history of nicotine dependence
CPT/HCPCS: G0105; J2371; J2704

== ENCOUNTER 2024-03-01 09:22 | Outpatient (REF) | payer MEDICARE, SELFPAY ==
--- OUTSIDE RECORDS SUMMARY | 2024-03-01 09:46 | XMS_ITS | Patient Health Record ---
Author Organization [facility] Address [address] [place] [address] Care Team Providers Care Clinical Assessment Manager Name Role Phone Cely Beatty MD Primary Care Provider Stanley Morton Unavailable [phone] ALLERGIES Allergen (clinical drug ingredient) Drug/Non Drug Allergy documented on EMR Reaction Allergy Type Onset Date Status Penicillin Unknown Drug Allergy Active mold (uncoded) Unknown Allergy Activ e REASON FOR REFERRAL No Information MEDICATIONS Medication SIG (Take, Route, Frequency, Duration) Notes Start Date End Date Status PARoxetine HCl ER 25 MG TAKE ONE TABLET BY MOUTH EVERY DAY Oral for 30 Active Arnuity Ellipta 200 MCG/ACT INHALE ONE INHALATION ONCE DAILY. Inhalation for 30 Active Lisinopril 10 MG 1 tablet Orally Once a day Active Flonase 50 MCG/DOSE 1 spray in each nostril Nasally Once a day Active Hydrocortisone 0.5 % 1 application to affected area Externally Twice a day Active Pravastatin Sodium 40 MG 1 tablet Orally Once a day Active Indomethacin 50 MG 1 capsule with food or milk Orally prn rare occasion Active ALPRAZolam 0.25 MG 1 tablet Orally as needed Not-Taking Claritin 10 MG 1 tablet Orally Once a day Active ProAir HFA 108 (90 Base) MCG/ACT 2 puffs as needed Inhalation every 6 hrs Active Flovent HFA 110 MCG/ACT 1 puff Inhalation Twice a day Active IMMUNIZATIONS Vaccine Route Administration Date Status Comme nts Influenza Unknown 12/28/2017 Administered Influenza Unknown 12/14/2017 Administered Influenza Unknown 11/22/2022 Administered SOCIAL HISTORY Tobacco Use: Social History Observation Description Date Details (start date - stop date) Never Smoker NA - NA Sex Assigned At : Social History Observation Description Sex Assigned At Unknown Tobacco Use/Smoking Question Answer Notes Patient is a nonsmoker Alcohol Screen Question Answer Notes Did you have a drink contain ing alcohol in the past year? Yes How often did you have a dri nk containing alcohol in the past year? Monthly or less (1 point) How many drinks did you have on a typical day when you were drinking in the past year? 1 or 2 drinks (0 point) How often did you have 6 or more drinks on one occasion in the past year? Never (0 point) Points 1 Interpretation Negative PROBLEMS Problem Type ICD Code Onset Dates Problem Status W/U Status Risk SNOMED Code Notes Problem Encounter for screening for malignant neoplasm of colon (Z12.11) Active confirmed 491596778 Problem Pre-procedural examination (Z01.818) Active confirmed [id number] Problem Abnormal barium swallow (R93.3) Active confirmed 391037853 Problem History of adenomatous polyp of colon (Z86.010) Active confirmed History of adenomatous polyp of colon (781987594) Problem Colon cancer screening (Z12.11) Active confirmed Colon cancer screening (710414712) Problem GERD (gastroesophageal reflux disease) (K21.9) Active confirmed Gastroesophagea l reflux disease (869298215) Problem Personal history of colonic polyps (Z86.010) Active confirmed History of poly p of colon (situation) (154983971) Problem Diverticulosis of large intestine without perforation or abscess without bleeding (K57.30) Active confirmed Diverticul ar disease of colon (210821417) VITAL SIGNS Temperature 97.1 degrees Fahrenheit 08/01/2023 Blood pressure diastolic 00 mm Hg 08/01/2023 Height 67 in 08/01/2023 Blood pressure systolic 000 mm Hg 08/01/2023 Weight 171 lb 2 oz lbs 08/01/2023 BMI 26.80 kg/m2 08/01/2023 Encounters Encounter Location Date Provider Diagnosis [facility] Outpatient [address] [place], [place] [phone] 11/10/2023 Stanley Mark Colon cancer screeni ng Z12.11 ; Personal history of colonic polyps Z86.010 ; Diverticulosis of large intestine without perforation or abscess without bleeding K57.30 and Other hemorrhoids K64.8 [facility] [address] [place] [address] 08/01/2023 Stanley Mark History of adenomato us polyp of colon Z86.010 ; GERD (gastroesophageal reflux disease) K21.9 and Colon cancer screening Z12.11 ASSESSMENTS Encounter Date Diagnosis Assessment Notes Treatment Notes Treatment Clinical Notes 11/10/2023 Colon cancer screening (ICD-10 - Z12.11) 11/10/2023 Personal history of colonic polyps (ICD-10 - Z86.010) 08/01/2023 History of adenomatous polyp of colon (ICD-10 - Z86.010) 08/01/2023 GERD (gastroesophageal reflux disease) (ICD-10 - K21.9) Watch diet with smaller meals, use TUMS or over the counter Pepcid as needed for the reflux. Let me know if things worsen. 11/10/2023 Diverticulosis of large intestine without perforation or abscess without bleeding (ICD-10 - K57.30) 08/01/2023 Colon cancer screening (ICD-10 - Z12.11) 11/10/2023 Other hemorrhoids (ICD-10 - K64.8) PLAN OF TREATMENT Future Test Test Name Order Date COLONOSCOPY 01/10/2018 UPPER GI ENDOSCOPY 11/16/2018 COLONOSCOPY 08/01/2023 Insurance Providers Payer Name Payer Address Payer Phone Subscriber Number Group Number Insured Name Patient Relationship to Insured Coverage Start Date Coverage End Date [facility] [address] [place], [place] [id number] ELAINE MEYER Self - patient is the insured MEDICAL (GENERAL) HISTORY Medical History History ICD Code Denies ME,DM,CVA,renal disease Asthma Negative screening colonosco py in 11/2007--- mild sigmoid diverticulosis and internal hemorrhoids Depression/Anxiety HTN Kidney stones Gout Colonoscopy in 05/2018 with removal of a small tubular adenoma EGD 11/2018 revealed a small hiatal hernia and changes of reflux, but no evidence of any esophagitis or Jarvis's esophagus Surgical History Surgery Date(Month/Year) cyst removal tonsillectomy
--- OUTSIDE RECORDS SUMMARY | 2024-03-01 09:46 | XMS_ITS ---
Author Organization [facility] Address [address] [place] [address] Care Team Providers Care Music Librarian Name Role Phone Po Cely RODRIGUEZ Primary Care Provider Stanley Morton [phone] REASON FOR VISIT screening,hx polyps PROBLEMS Problem Type ICD Code Onset Dates Problem Status W/U Status Risk SNOMED Code Notes Problem Personal history of colonic polyps (Z86.010) Active confirmed History of polyp of colon (situation) (194430501) Problem Diverticulosis of large intestine without perforation or abscess without bleeding (K57.30) Active confirmed Diverticul ar disease of colon (964043855) Encounters Encounter Location Date Provider Diagnosis [facility] [place] Outpatient [address] [place] [phone] 11/10/2023 Stanley Mark Colon cancer scree adrianna Z12.11 ; Personal history of colonic polyps Z86.010 ; Diverticulosis of large intestine without perforation or abscess without bleeding K57.30 and Other hemorrhoids K64.8 ASSESSMENTS Encounter Date Diagnosis Assessment Notes Treatment Notes Treatment Clinical Notes 11/10/2023 Colon cancer screening (ICD-10 - Z12.11) 11/10/2023 Personal history of colonic polyps (ICD-10 - Z86.010) 11/10/2023 Diverticulosis of large intestine without perforation or abscess without bleeding (ICD-10 - K57.30) 11/10/2023 Other hemorrhoids (ICD-10 - K64.8) PLAN OF TREATMENT No Information
--- OUTSIDE RECORDS SUMMARY | 2024-03-01 09:46 | XMS_ITS ---
Author Organization [facility] Address [address] [place] [id number] Care Team Providers Care Plate Mill Hand Name Role Phone Po Cely RODRIGUEZ Primary Care Provider Stanley Morton [phone] ALLERGIES Allergen (clinical drug ingredient) Drug/Non Drug Allergy documented on EMR Reaction Allergy Type Onset Date Status Penicillin Unknown Drug Allergy Active mold (uncoded) Unknown Allergy Activ e REASON FOR VISIT Patient presents today for a colon screening MEDICATIONS Medication SIG (Take, Route, Frequency, Duration) Notes Start Date End Date Status Lisinopril 10 MG 1 tablet Orally Once a day Active Claritin 10 MG 1 tablet Orally Once a day Active ProAir HFA 108 (90 Base) MCG/ACT 2 puffs as needed Inhalation every 6 hrs Active PARoxetine HCl ER 25 MG TAKE ONE TABLET BY MOUTH EVERY DAY Oral for 30 Active Arnuity Ellipta 200 MCG/ACT INHALE ONE INHALATION ONCE DAILY. Inhalation for 30 Active Pravastatin Sodium 40 MG 1 tablet Orally Once a day Active Flonase 50 MCG/DOSE 1 spray in each nostril Nasally Once a day Active Hydrocortisone 0.5 % 1 application to affected area Externally Twice a day Active Indomethacin 50 MG 1 capsule with food or milk Orally prn rare occasion Active ALPRAZolam 0.25 MG 1 tablet Orally as needed Not-Taking Flovent HFA 110 MCG/ACT 1 puff Inhalation Twice a day Active SOCIAL HISTORY Tobacco Use: Social History Observation [...] W/U Status Risk SNOMED Code Notes Problem History of adenomatous polyp of colon (Z86.010) Active confirmed History of adenomatous polyp of colon (889291750) Problem Colon cancer screening (Z12.11) Active confirmed Colon cancer screening (523710658) Problem GERD (gastroesophage al reflux disease) (K21.9) Active confirmed Gastroesophagea l reflux disease (461625301) VITAL SIGNS BMI 26.80 kg/m2 08/01/2023 Blood pressure systolic 000 mm Hg 08/01/19 24 Blood pressure diastolic 00 mm Hg 024 Height 67 in 08/01/2023 Temperature 97.1 degrees Fahrenheit 08/01/19 24 Weight 171 lb 2 oz lbs 08/01/2023 Encounters Encounter Location Date Provider Diagnosis [facility] [address] [place] [address] 08/01/2023 Stanley Mark History of adenomato us polyp of colon Z86.010 ; GERD (gastroesophageal reflux disease) K21.9 and Colon cancer screening Z12.11 ASSESSMENTS Encounter Date Diagnosis Assessment Notes Treatment Notes Treatment Clinical Notes 08/01/2023 History of adenomatous polyp of colon (ICD-10 - Z86.010) 08/01/2023 GERD (gastroesophageal reflux disease) (ICD-10 - K21.9) Watch diet with smaller meals, use TUMS or over the counter Pepcid as needed for the reflux. Let me know if things worsen. 08/01/2023 Colon cancer screening (ICD-10 - Z12.11) PLAN OF TREATMENT Treatment Notes Assessment Notes GERD (gastroesophageal reflux disease) W atch diet with smaller meals, use TUMS or over the counter Pepcid as needed for the reflux. Let me know if things worsen. Future Test Test Name Order Date COLONOSCOPY 08/01/2023 Next Appt Details Follow Up: prn, Reason: Progress Notes * Examination Category Sub-Category Detail Notes General Examination GENERAL APPEARANCE: pleasant , well nourished, well developed, in no acute distress HEAD: EYES: sclera non-icteric EARS: NOSE: THROAT: NECK/THYROID: no cervical lymphade nopathy, neck supple HEART: S1, S2 normal CHEST: LUNGS: clear to auscultatio n bilaterally ABDOMEN: normal bowel sounds, no guarding or rigidity, no guarding or rigidity, no masses palpable, soft, nontender, nondistended NEUROLOGIC: alert and oriented SKIN: nonjaundiced, no spi radha angiomata EXTREMITIES: no edema PERIPHERAL PULSES: BACK: BREASTS: MUSCULOSKELETAL: MALE GENITOURINARY: LYMPH NODES: RECTAL EXAM: FEMALE GENITOURINARY: ORAL CAVITY: mucosa moist
[2024-03-01 10:57] LABS: MANUAL DIFF FLAG NO
[2024-03-01 11:15] LABS: Basophils Percent Auto 0.7 % (0-2); Eosinophils Absolute Auto 0.1 X10*3/uL (0.0-0.4); Eosinophils Percent Auto 2.4 % (0-4); Hematocrit 43.4 % (42.0-52.0); Hemoglobin 15.2 g/dl (14.0-18.0); Imm Gran Abs Auto 0.02 X10*3/uL (0.00-0.03); Imm Gran Pct Auto 0.3 % (0.0-0.4); Lymphocytes Percent Auto 35.3 % (20-40); Mean Corpuscular Hemoglobin 32.9 pg (27.0-33.0); Mean Corpuscular Volume 93.9 fL (80.0-98.0); Mean Platelet Volume 10.3 fL (9.4-12.4); Monocytes Absolute Auto 0.4 X10*3/uL (0.1-1.2); Monocytes Percent Auto 6.6 % (2-11); Neutrophils Absolute Auto 3.2 x10*3/uL (2.0-8.3); Neutrophils Percent Auto 54.7 % (45-73); Platelet Count 241 X10*3/uL (160-400); Red Blood Count 4.62 X10*6/uL (4.60-5.80); Red Cell Distribution Width 12.6 % (11.0-16.0); White Blood Count 5.8 X10*3/uL (4.8-10.8)
[2024-03-01 11:24] LABS: Alanine Aminotransferase 23 U/L (0-40); Albumin Level 4.2 g/dL (3.5-5.0); Alkaline Phosphatase 73 U/L (39-117); Anion Gap 11 (12-20); Aspartate Amino Transferase 20 U/L (5-37); Bilirubin Total 0.6 mg/dL (0.0-1.0); Blood Urea Nitrogen 20 mg/dL (9-16); Calcium 9.3 mg/dL (8.4-10.2); Carbon Dioxide 29 mmol/L (22-29); Chloride 105 mmol/L (96-108); Cholesterol 189 mg/dL (<200); Estimated Glomerular Filt Rate > 60; Glucose Random 98 mg/dL (60-115); HDL Cholesterol 34 mg/dL (>40); LDL Cholesterol Calculated 126 mg/dL (<100); Potassium 4.2 mmol/L (3.3-5.1); Sodium 141 mmol/L (135-145); Total Protein 6.8 g/dL (6.5-8.0); Triglycerides 145 mg/dL (<150)
[2024-03-01 11:42] LABS: Free T4 (Free Thyroxine) 0.77 ng/dL (0.71-1.85); Thyroid Stimulating Hormone 0.86 uIU/mL (0.32-4.0)
[2024-03-01 11:50] LABS: Folate 16.1 ng/mL (> or = 4.0); Vitamin B12 486 pg/mL (200-900)
== END 2024-03-01 09:23 | disposition home or self-care (01) ==
LOC: HO.10HDL 09:22
PROVIDERS: Visit Provider Internal Medicine
DX: E78.00 Pure hypercholesterolemia, unspecified (principal); Z12.5 Encounter for screening for malignant neoplasm of prostate
CPT/HCPCS: 36415; 80053; 80061; 82607; 82746; 84153; 84439; 84443; 85025

== ENCOUNTER 2024-03-07 11:36 | Outpatient (AMB) | payer MEDICARE, SELFPAY ==
--- NOTE | 2024-03-07 11:39 | A.OFFPC_ITS ---
Vital Signs 03/07/24 11:41 03/07/24 11:59 Height 5 ft 7 in Weight 175 lb 8 oz BMI 27.5 BP 154/90 H 130/70 Blood Pressure Location Lt brachial Lt brachial Position Sitting Sitting Pulse 67 Pulse Source Pulse Oximeter Pulse Oximetry (%) 100 Intake Visit Reasons: asthma Direct Support Professional Home Health Required: No Accompanied by: Self / Same As Patient Allergies mold Allergy (Mild, Verified 03/07/24 11:43) ITCHING penicillin V Allergy (Unknown, Verified 03/07/24 11:43) Unknown Medication List - Last Reconciled 03/07/24 by Cely Beatty MD albuterol sulfate 90 mcg/actuation (Ventolin HFA) 2 puffs inhalation Q6H blood pressure monitor (Blood Pressure Kit) As directed lisinopril 30 mg PO DAILY loratadine (Claritin) 10 mg PO DAILY paroxetine HCl ER 37.5 mg PO DAILY pravastatin 80 mg PO DAILY 30 days Tobacco use date assessed: 03/07/24 Fall risk assessment: 1 Fall in past year Last assessed Fall Risk: 03/07/24 Dental Screening Dental Screen Date: 03/07/24 Did you have a dental visit in the last 12 months?: Yes Did you have a dental problem in the last 6 months where you did not have access to dental care?: No Was dental information given to patient?: Patient has dentist HPI asthma HPI Details The patient is a 68-year-old male presenting with hemorrhoids. The hemorrhoids have been problematic, especially in the last couple of weeks, with increased bleeding. The patient reports that this is not typically an issue, but has become more frequent recently, occurring approximately once a week. The patient is currently using an [id number] hemorrhoid cream from [employer], which contains menthol, but has not used prescription medication. The patient acknowledges increased episodes of constipation and believes this may be contributing to the current hemorrhoid issue. Dietary fiber intake is reported to be sufficient as the patient consumes a lot of produce from his garden. Additional history involves a comprehensive review of his chronic conditions. Regarding his asthma, the patient uses an albuterol inhaler a couple of times a week. His blood pressure, previously measured as very high, has since stabilized on lisinopril 37.5 mg daily. Hypercholesterolemia is managed with pravastatin, and recent lab work shows an LDL of 126 mg/dL. For major depressive disorder, he sees a psychiatrist every three months and takes medication at night, assisting in sleep. Recent bloodwork revealed normal results for blood counts, kidney and liver function, electrolytes, B12, folic acid, thyroid levels, and prostate- specific antigen. He is also aware of being up-to-date with eye exams, and initially got glasses a few months ago, despite early signs of cataracts. Immunizations are current except for the flu vaccine, which he plans to receive today. [facility] Medical History Hiatal hernia Tubular adenoma Kidney stones Annual physical exam Gout GERD (gastroesophageal reflux disease) Hypertension Hypercholesterolemia Anxiety and depression Asthma Surgical History History of esophagogastroduodenoscopy (EGD) H/O colonoscopy History of surgery History of tonsillectomy Family History Brother No problems noted. Father Heart attack Mother Heart attack, Onset Age: 90 Social History Housing: House Alcohol intake: current Alcohol intake frequency: does not drink Comment: once a month 2-4 drinks Patient Tobacco Use Status: Former Tobacco user Tobacco use type: Cigar e-Cigarette/Vaping Use: Never Used Second Hand Smoke Exposure: No service: No Current occupational status: retired Cognitive needs: No Hearing needs: No Vision needs: Yes Questionnaire PHQ-9 Over the last 2 weeks, how often have you been bothered by any of the following problems? 1. Little interest or pleasure in doing things: not at all 2. Feeling down, depressed, or hopeless: not at all 3. Trouble falling or staying asleep, or sleeping too much: not at all 4. Feeling tired or having little energy: not at all 5. Poor appetite or overeating: not at all 6. Feeling bad about yourself - or that you are a failure or have let yourself or your family down: not at all 7. Trouble concentrating on things, such as reading the newspaper or watching television: not at all 8. Moving or speaking so slowly that other people could have noticed. Or the opposite - being so fidgety or restless that you have been moving around a lot more than usual: not at all 9. Thoughts that you would be better off or of hurting yourself in some way: not at all Total score: 0 Depression Screening Interpretation: Negative Depression Screening Done: Yes Source: Developed by Drs. Stanley Shen, Jyoti Velazquez, Rodríguez Sullivan and colleagues, with an educational julio césar from [employer]. Thrive Questionnaire Date Thrive assessed: 03/07/24 I am a: Patient What is your living situation today?: I have a steady place to live Within the past 12 months, did the food you bought not last and you didn't have the money to get more?: Never true Within the past 12 months, did you worry whether your food would run out before you got money to buy more?: Never true Do you have trouble paying for medicines?: No Do you have trouble getting transportation to medical appointments?: No Do you have trouble paying your heating and electricity bill?: No Do you have trouble taking care of your child, family member or friend?: No Do you have trouble with day-to-day activities such as bathing, preparing meals, shopping, managing finances, etc.?: No Are you currently unemployed and looking for a job?: No Are you interested in more education?: No Currently or been in a relationship where the following occur: No concerns reported THRIVE Score: 0 HORTENSIA-7 AMB Questionnaire HORTENSIA-7 Date HORTENSIA - 7 assessed: 03/07/24 Feeling nervous, anxious, or on edge: 0 = Not at all Not being able to stop or control worryin = Not at all Worrying too much about different things: 0 = Not at all Trouble relaxin = Not at all Being so restless that it is hard to sit still: 0 = Not at all Becoming easily annoyed or irritable: 0 = Not at all Feeling afraid as if something awful might happen: 0 = Not at all Total HORTENSIA-7 score (0-4 normal; 5-9 mild; 10-14 moderate; 15-21 severe): 0 Source: Developed by Drs. Stanley Shen, Jyoti Velazquez, Rodríguez Sullivan and colleagues, with an educational julio césar from [employer]. HORTENSIA-7 Assessment Billing HORTENSIA-7 Assessment Tool: HORTENSIA-7 Assessment 53482 ACT Questionnaire In the past 4 weeks, how much of the time did your asthma keep you from getting as much done at work, school or at home?: None of the time During the past 4 weeks, how often have you had shortness of breath?: 1-2 times a week During the past 4 weeks, how often did your asthma symptoms wake you up at night or earlier than usual in the morning?: Not at all During the past 4 weeks, how often have you had to use your rescue inhaler or nebulizer medication?: 2-3 times a week How would you rate your asthma control during the past 4 weeks?: Well controlled ACT Interpretation: Negative Score: 21 Physical exam (Primary Care) Vital Signs: Last Vital Signs Pulse 67 03/07/24 11:41 BP 130/70 03/07/24 11:59 Pulse Ox 100 03/07/24 11:41 BMI result Body Mass Index 27.5 Tobacco/Smoking Status: Tobacco use Status Tobacco use date assessed 03/07/24 03/07/24 11:41 Patient Tobacco Use Status Former Tobacco user 03/07/24 11:41 Tobacco use type Cigar 03/07/24 11:41 e-Cigarette/Vaping Use Never Used 03/07/24 11:41 PHQ-9: PHQ-9 Score PHQ-9: Total score 0 03/07/24 12:10 Depression Screening Interpretation: Negative Thrive Assessment: Date of Thrive Assessment Date Thrive assessed 03/07/24 03/07/24 11:41 Currently or been in a relationship where the following occur: No concerns reported Const General: alert; No acute distress Eyes Conjunctivae: conjunctivae normal Resp Auscultation: clear to auscultation bilaterally Cardio Rate: regular rate Rhythm: regular rhythm GI Inspection: Yes normal to inspection Extrem General: Yes normal to inspection and No edema Office Procedures Flu Questionnaire Does the patient have a severe egg allergy?: No Does the patient have severe life threatening allergies?: No Does the patient have a fever or illness today?: No Has the patient ever had Guillain-Yale Syndrome?: No Has the patient ever had any past reaction to a flu shot?: No Immunizations Fluarix Triv [id number] (PF) 45 mcg (15 mcg x 3)/0.5 mL IM syringe Performing Provider: Cely Beatty MD Performing Location: [facility] Administered by: KURT Wilson on 03/07/24 12:12 Dose Route Admin Location Dispensed Lot Number Expiration Date ND Ceo [employer] 0.5 mL IM Left Deltoid 0.5 mL [id number] 09/02/24 [id number] [employer] VIS Given Date VIS Provided VIS Publication Date 03/07/24 Single Vaccine 20 Eligibility Eligibility Date Funding Source Not [facility] Eligible 03/07/24 Private Coding Level of Care Code Est Pt Level 4 (34867) Diagnoses Mild intermittent asthma without complication J45.20 Asthma complication type: uncomplicated Asthma persistence: intermittent Asthma severity: mild Hypercholesterolemia E78.00 Essential hypertension I10 Hypertension type: essential hypertension Depression, major, recurrent F33.9 Gastroesophageal reflux disease without esophagitis K21.9 Esophagitis presence: without esophagitis Constipation K59.00 Hemorrhoids K64.9 Additional Codes Asthma Control Questionnaire - ACT Interpretation: Negative ([id number]) HORTENSIA-7 Assessment Billing - HORTENSIA-7 Assessment Tool: HORTENSIA-7 Assessment 34560 ([id number]) Assessment & Plan Assessment & Plan (1) Asthma: Comment: PFT December 2009 Code(s): J45.909 - Unspecified asthma, uncomplicated Category: Medical Qualifiers: Asthma complication type: uncomplicated Asthma persistence: intermittent Asthma severity: mild Qualified Code(s): J45.20 - Mild intermittent asthma, uncomplicated Plan: Continue with the inhaler as needed only. (2) Hypercholesterolemia: Code(s): E78.00 - Pure hypercholesterolemia, unspecified Category: Medical Plan: Avoid fried foods, chicken skin, eggs, butter margarine, pastries and meat. Be it pork or beef they have a lot of cholesterol (3) Hypertension: Code(s): I10 - Essential (primary) hypertension Category: Medical Qualifiers: Hypertension type: essential hypertension Qualified Code(s): I10 - Essential (primary) hypertension Plan: Continue with blood pressure medication. Decrease salt intake and exercise (4) Depression, major, recurrent: Comment: [facility] Dr. Miramontse and mary Ny08/2019 Code(s): F33.9 - Major depressive disorder, recurrent, unspecified Category: Medical Plan: Continue with counseling and therapy. Recent change in therapy. (5) GERD (gastroesophageal reflux disease): Code(s): K21.9 - Gastro-esophageal reflux disease without esophagitis Category: Medical Qualifiers: Esophagitis presence: without esophagitis Qualified Code(s): K21.9 - Gastro-esophageal reflux disease without esophagitis Plan: Avoid the foods that causes that usually spicy foods, tomato products, juices, coffee, soda and foods that your sensitive to. After eating do not lie down, allow 3-4 hours before in lie down. And keep the head of bed above 30 degrees to avoid the acid from going up. (6) Constipation: Code(s): K59.00 - Constipation, unspecified Category: Medical Plan: Three rules for constipation 1. Diet need to have a high fiber diet less of meat 2. Increase oral fluids 3. Exercise (7) Hemorrhoids: Code(s): K64.9 - Unspecified hemorrhoids Category: Medical Plan: Advised constipation resolution and use hot Sitz bath Plan 1. 5 mg daily. Blood pressure monitoring to be continued, with lifestyle and dietary advisements reinforced: - Hypercholesterolemia: Continue pravastatin with regular monitoring of lipid levels. Dietary recommendations remain in place for cholesterol management. - Gastroesophageal Reflux Disease (GERD), Gout, and Major Depressive Disorder: Continue current medications and psychiatric consultations. No changes discussed. - Preventative Health: Administer flu vaccination today. Discuss the importance of remaining vigilant against COVID-19 and other respiratory illnesses. Continue regular follow-up for colonoscopy as indicated. Orders: Orders Influenza [id number] Immunization Today Z23 - Encounter for immunization Medications: New hydrocortisone 2.5% (Proctosol HC) 1 appl TN BID-QID PRN 30 grams 2RF hemorrhoids K64.9 - Unspecified hemorrhoids sennosides-docusate sodium 8.6-50 mg (Senna Plus) 1 tab-cap PO BEDTIME 30 tabs 2RF K59.00 - Constipation, unspecified
[2024-03-07 11:41] VITALS: BP 154/90; PULSE 67; O2SAT 100; BMI 27.5
[2024-03-07 11:59] VITALS: BP 130/70
--- OUTSIDE RECORDS SUMMARY | 2024-03-07 12:49 | XMS_ITS ---
Author Organization [facility] Address [address] [place] [phone] Care Team Providers Care Wire Fence Erector Name Role Phone Po Cely RODRIGUEZ Primary Care Provider Stanley Morton [phone] ALLERGIES Allergen (clinical drug ingredient) Drug/Non Drug [...] confirmed History of adenomatous polyp of colon (501373244) Problem Colon cancer screening (Z12.11) Active confirmed Colon cancer screening (710994133) Problem GERD (gastroesophage al reflux disease) (K21.9) Active confirmed Gastroesophagea l reflux disease (895495530) VITAL SIGNS BMI 26.80 kg/m2 08/01/2023 Blood pressure systolic 000 mm Hg 08/01/19 24 Blood pressure diastolic 00 mm Hg 024 Height 67 in 08/01/2023 Temperature 97.1 degrees Fahrenheit 08/01/19 24 Weight 171 lb 2 oz lbs 08/01/2023 Encounters Encounter Location Date Provider Diagnosis [facility] [address] [place] [address] 08/01/2023 Stanley Mark History of adenomato us [...]
--- OUTSIDE RECORDS SUMMARY | 2024-03-07 12:49 | XMS_ITS | Patient Health Record ---
Author Organization [facility] Address [address] [place] [address] Care Team Providers Care Skin Diver Name Role Phone Cely Beatty MD Primary Care Provider Stanley Morton Unavailable [phone] ALLERGIES Allergen (clinical drug ingredient) Drug/Non Drug [...] malignant neoplasm of colon (Z12.11) Active confirmed 834239881 Problem Pre-procedural examination (Z01.818) Active confirmed [id number] Problem Abnormal barium swallow (R93.3) Active confirmed 604263666 Problem History of adenomatous polyp of colon (Z86.010) Active confirmed History of adenomatous polyp of colon (767228715) Problem Colon cancer screening (Z12.11) Active confirmed Colon cancer screening (906282903) Problem GERD (gastroesophageal reflux disease) (K21.9) Active confirmed Gastroesophagea l reflux disease (797590119) Problem Personal history of colonic polyps (Z86.010) Active confirmed History of poly p of colon (situation) (504353712) Problem Diverticulosis of large intestine without perforation or abscess without bleeding (K57.30) Active confirmed Diverticul ar disease of colon (713794025) VITAL SIGNS Temperature 97.1 degrees Fahrenheit 08/01/2023 Blood pressure diastolic 00 mm Hg 08/01/2023 Height 67 in 08/01/2023 Blood pressure systolic 000 mm Hg 08/01/2023 Weight 171 lb 2 oz lbs 08/01/2023 BMI 26.80 kg/m2 08/01/2023 Encounters Encounter Location Date Provider Diagnosis [facility] [address] [place] [phone] 11/10/2023 Stanley Mark Colon cancer screeni ng Z12.11 ; Personal history of colonic polyps Z86.010 ; Diverticulosis of large intestine without perforation or abscess without bleeding K57.30 and Other hemorrhoids K64.8 [facility] [address] [place] [address] 08/01/2023 Stanley Mark History of adenomato us [...] Insured Coverage Start Date Coverage End Date [facility] [address] [place], [place] [id number] ELAINE MEYER Self - patient is the insured MEDICAL (GENERAL) HISTORY Medical History History ICD Code Denies NM,DM,CVA,renal disease Asthma Negative screening colonosco py in 11/2007--- mild sigmoid diverticulosis and internal hemorrhoids Depression/Anxiety HTN Kidney stones Gout Colonoscopy in 05/2018 with removal of a small tubular adenoma EGD 11/2018 revealed a small hiatal hernia and changes of reflux, but no evidence of any esophagitis or Jarvis's esophagus Surgical History Surgery Date(Month/Year) cyst removal tonsillectomy
--- OUTSIDE RECORDS SUMMARY | 2024-03-07 12:49 | XMS_ITS ---
Author Organization [facility] Address [address] [place] [address] Care Team Providers Care Manager Pipeline Name Role Phone Po Cely RODRIGUEZ Primary Care Provider Stanley Morton [phone] REASON FOR VISIT screening,hx polyps PROBLEMS Problem Type ICD Code Onset Dates Problem Status W/U Status Risk SNOMED Code Notes Problem Personal history of colonic polyps (Z86.010) Active confirmed History of polyp of colon (situation) (325526432) Problem Diverticulosis of large intestine without perforation or abscess without bleeding (K57.30) Active confirmed Diverticul ar disease of colon (743934573) Encounters Encounter Location Date Provider Diagnosis [facility] [address] [place] [phone] 11/10/2023 Stanley Mark Colon cancer scree adrianna [...]
== END 2024-03-07 12:18 | disposition home or self-care (01) ==
PROVIDERS: PCP Internal Medicine; Visit Provider Internal Medicine
DX: J45.20 Mild intermittent asthma, uncomplicated (principal); E78.00 Pure hypercholesterolemia, unspecified; I10 Essential (primary) hypertension; F33.9 Major depressive disorder, recurrent, unspecified; K21.9 Gastro-esophageal reflux disease without esophagitis; K59.00 Constipation, unspecified; K64.9 Unspecified hemorrhoids; Z23 Encounter for immunization

== ENCOUNTER 2024-10-16 15:18 | Outpatient (AMB) | payer MEDICARE, SELFPAY ==
--- OUTSIDE RECORDS SUMMARY | 2023-11-10 07:30 | XMS_ITS ---
Author Organization [facility] Address [address] [place] [address] Care Team Providers Care Entertainment Usher Name Role Phone Po Cely RODRIGUEZ Primary Care Provider Stanley Morton [phone] REASON FOR VISIT screening,hx polyps Problems Problem Type SNOMED Code ICD Code Onset Dates Problem Status W/U Status Risk Notes Problem History of polyp of colon (situation) (059349503) Personal history of colonic polyps (Z86.010) Active confirmed Problem Diverticulosis o f large intestine without perforation or abscess without bleeding (K57.30) Active confirmed Encounters Encounter Location Date Provider Diagnosis [facility] [place] Outpatient [address] [place] [phone] 11/10/2023 Stanley Mark Colon cancer scree adrianna [...] * ELAINE KEY CDOB:1955 (69 yo M)Acc No.[id number]:11/10/2023 COLON WITH MAC Patient: ELAINE ARRINGTON Provider: Rianna Mark MD :1955 A ge:68 Y S ex:Male Date:11/10/2023 Address:[address] [facility] Pcp:Cely Beatty MD Subjective: * Chief Complaints: [...] MD Date: 0 11/10/2023 Generated for Lindsay alonso/Mukund/Keyuritting on: 0 10/16/2024 03:19 PM EDT
--- OUTSIDE RECORDS SUMMARY | 2024-10-16 15:20 | XMS_ITS | Clinical Summary ---
Author Organization [facility] Address [address] [place] [address] Care Team Providers Care Bump Grader Operator Name Role Phone Cely Beatty MD Primary Care Provider Unavailabl e Allergies Active Allergy Reactions Severity Noted Date Comments Dust 05/22/2017 Mold 05/22/2017 Penicillins 05/22/2017 Medications Medication Sig Dispensed Refills Start Date End Date Status escitalopram (LEXAPRO) 20 MG tablet Take 20 mg by mouth daily. 0 Active busPIRone (BUSPAR) 7.5 MG tablet Take 7.5 mg by mouth 2 times daily. 0 Active lisinopril (PRINIVIL,ZESTRIL) 10 MG tablet Take 10 mg by mouth daily. 0 Active aspirin 81 MG tablet Take 81 mg by mouth daily. 0 Active montelukast (SINGULAIR) 10 MG tablet Take 10 mg by mouth at bedtime. 0 Active Loratadine (CLARITIN OR) Take by mouth. 0 Active Fluticasone Propionate, Inhal, (FLOVENT IN) Inhale into the lungs. 0 Active Fluticasone Propionate (FLONASE NA) by Nasal route. 0 Active indomethacin (INDOCIN) 50 MG capsule Take 100 mg by mouth as needed. 0 Active hydrocortisone 2.5 % cream Apply topically 2 times daily. 0 Active Social History Tobacco Use Types Packs/Day Years Used Date Smoking Tobacco: Never Smokeless Tobacco: Never Sex Assigned at Date Recorded Not on file Last Filed Vital Signs Vital Sign Reading Time Taken Comments Blood Pressure 139/90 05/22/2017 2:29 PM EDT Pulse 80 05/22/2017 2:29 PM EDT Temperature - - Respiratory Rate - - Oxygen Saturation - - Inhaled Oxygen Concentration - - Weight 81.2 kg (179 lb) 05/22/2017 2:29 PM EDT Height - - Body Mass Index - - Plan of Treatment Health Maintenance Due Date Last Done Comments Covid-19 Vaccine (#1) 02/02/1956 HEPATITIS C SCREENING 1974 TOBACCO CHECK/ADVISE 1974 DTAP/TDAP/TD (1 - Tdap) 08/04/1975 CHOLESTEROL SCREENING 1976 COLON CANCER SCREENING 2006 SHINGLES VACCINE (1 of 2) 2006 PNEUMOCOCCAL VACCINE (1 - PCV) 2021 BMI CHECK/ADVISE 03/06/2024 INFLUENZA (#1) 2024 Care Teams Bump Grader Operator Relationship Specialty Start Date End Date Cely Beatty MD PCP - General Internal Medicine 02/20/17
--- NOTE | 2024-10-16 15:22 | MHC.PC.OV ---
Intake Visit Reasons: covid? 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: No Director Of Annual Giving: Not Required per policy Accompanied by: Self / Same As Patient Allergies mold Allergy (Mild, Verified 10/16/24 15:24) ITCHING penicillin V Allergy (Unknown, Verified 10/16/24 15:24) Unknown Medication List - Last Reconciled 10/16/24 by Cely Beatty MD albuterol sulfate 90 mcg/actuation (Ventolin HFA) 2 puffs inhalation Q6H blood pressure monitor (Blood Pressure Kit) As directed hydrocortisone 2.5% (Proctosol HC) 1 appl HI BID-QID PRN lisinopril 30 mg PO DAILY loratadine (Claritin) 10 mg PO DAILY nirmatrelvir-ritonavir 300 mg (150 mg x 2)-100 mg (Paxlovid) take TWO 150 mg tablets of nirmatrelvir with ONE 100 mg tablet of ritonavir twice daily for 5 days PO paroxetine HCl ER 37.5 mg PO DAILY pravastatin 80 mg PO DAILY 30 days sennosides-docusate sodium 8.6-50 mg (Senna Plus) 1 tab-cap PO BEDTIME Tobacco use date assessed: 03/07/24 Fall risk assessment: No Falls in past year Last assessed Fall Risk: 10/16/24 Dental Screening Dental Screen Date: 03/07/24 HPI covid? [phone] HPI Details sinus congestion cough muscle aches , 2 days ago, , tested today and positive PFSH Medical History Hiatal hernia Tubular adenoma Kidney stones Annual physical exam Gout GERD (gastroesophageal reflux disease) Hypertension Hypercholesterolemia Anxiety and depression Asthma Surgical History History of esophagogastroduodenoscopy (EGD) H/O colonoscopy History of surgery History of tonsillectomy Family History Brother No problems noted. Father Heart attack Mother Heart attack, Onset Age: 90 Social History Housing: House Alcohol intake: current Alcohol intake frequency: does not drink Comment: once a month 2-4 drinks Patient Tobacco Use Status: Former Tobacco user Tobacco use type: Cigar e-Cigarette/Vaping Use: Never Used Second Hand Smoke Exposure: Yes service: No Current occupational status: retired Cognitive needs: No Hearing needs: No Vision needs: Yes Questionnaire Thrive Questionnaire Date Thrive assessed: 03/07/24 HORTENSIA-7 AMB Questionnaire HORTENSIA-7 Date HORTENSIA - 7 assessed: 03/07/24 Source: Developed by Drs. Stanley Shen, Jyoti Velazquez, Rodríguez Sullivan and colleagues, with an educational julio césar from [employer]. Physical exam (Primary Care) Tobacco/Smoking Status: Tobacco use Status Tobacco use date assessed 03/07/24 10/16/24 15:25 Patient Tobacco Use Status Former Tobacco user 10/16/24 15:25 Tobacco use type Cigar 10/16/24 15:25 e-Cigarette/Vaping Use Never Used 10/16/24 15:25 Thrive Assessment: Date of Thrive Assessment Date Thrive assessed 03/07/24 10/16/24 15:25 Telehealth Telehealth Telehealth Platform: [employer] [place] Location of provider rendering services: practice address Location of patient: address on file Patient Identification confirmed using: Name, : Yes Telehealth method: video Patient verbally consented to treatment: Yes Patient verbally consented to billing insurance company: Yes Patient informed of any privacy concerns related to visit: Yes Minutes spent on Phone/Video with Pt.: 15 Coding Level of Care Code Tele Est Pt Level 3 (09722) Diagnoses COVID-19 virus infection U07.1 Assessment & Plan Assessment & Plan (1) COVID-19 virus infection: Comment: 04/21/2023 10/16/2024 Code(s): U07.1 - COVID-19 Category: Medical Plan: Antiviral prescription sent in For the sore throat can take Cepacol lozenges, discussed about Delsym to help with dry cough so she can rest and advised to increase oral fluids. Patient also can take Tylenol for chills and fever. Plan History of Present Illness The patient is a 69-year-old male presenting with a COVID-19 infection. He reported sinus problems and coughing, initially thought to be allergies, before testing positive for COVID-19. The patient initially tested negative but then tested positive the next day. The patient has a history of asthma, hypertension, hypercholesterolemia, and gastroesophageal reflux disease (GERD). His last blood work in February 2024 was normal, and he was last seen in March 2024 for a routine follow-up. Review of Systems - Respiratory: Reports sinus problems and coughing. Denies dyspnea. Plan The patient will begin Paxlovid for COVID-19 treatment, having previously used it in 2023. He should stay hydrated and use lozenges for throat discomfort. Delsym is recommended for nighttime cough relief. Symptom duration with Paxlovid is expected to be about a week, with improvement in a few days. Masking is advised if coughing continues to prevent spreading the virus. The patient should follow up if issues occur and take the antiviral promptly for best results. Patient was informed and verbally consented to the use of an ambient scribe for clinic note documentation during this visit. Discussion Notes I discussed with the patient the use of Paxlovid for his COVID-19 infection, noting his previous experience with the medication in 2023. We talked about the importance of hydration and using lozenges for throat relief, as well as Delsym for managing cough, particularly at night. I explained that symptoms should improve within a few days of starting Paxlovid, and the overall duration is typically about a week. I advised him to wear a mask if coughing persists to prevent transmission and to contact me if any issues arise. Patient Instructions - Start Paxlovid as prescribed. - Drink plenty of fluids to stay hydrated. - Use lozenges for sore throat relief. - Take Delsym at night to help with coughing. - Wear a mask if you continue to cough to prevent spreading the virus. - Contact the clinic if you have any problems or concerns. Medications: New nirmatrelvir-ritonavir 300 mg (150 mg x 2)-100 mg (Paxlovid) take TWO 150 mg tablets of nirmatrelvir with ONE 100 mg tablet of ritonavir twice daily for 5 days PO 30 ea 0RF U07.1 - COVID-19
== END 2024-10-16 16:29 | disposition home or self-care (01) ==
LOC: HO.HMCH 15:18
PROVIDERS: PCP Internal Medicine; Visit Provider Internal Medicine
DX: U07.1 COVID-19 (principal)

== ENCOUNTER 2024-11-05 13:51 | Outpatient (AMB) | payer MEDICARE, SELFPAY ==
[2024-11-05 13:57] VITALS: BP 136/72; PULSE 83; O2SAT 96; BMI 25.8
--- NOTE | 2024-11-05 13:57 | MHC.PC.OV ---
Vital Signs 11/05/24 13:57 Height 5 ft 7 in Weight 165 lb BMI 25.8 BP 136/72 Blood Pressure Location Lt brachial Position Sitting Pulse 83 Pulse Source Pulse Oximeter Pulse Oximetry (%) 96 Oxygen Delivery Method Room Air Intake Visit Reasons: PE Allergies mold Allergy (Mild, Verified 11/05/24 13:58) ITCHING penicillin V Allergy (Unknown, Verified 11/05/24 13:58) Unknown Medication List - Last Reconciled 11/05/24 by Cely Beatty MD albuterol sulfate 90 mcg/actuation (Ventolin HFA) 2 puffs inhalation Q6H blood pressure monitor (Blood Pressure Kit) As directed budesonide-formoterol 80-4.5 mcg/actuation (Symbicort) 2 puffs inhalation BID hydrocortisone 2.5% (Proctosol HC) 1 appl FL BID-QID PRN lisinopril 30 mg PO DAILY loratadine (Claritin) 10 mg PO DAILY paroxetine HCl ER 37.5 mg PO DAILY pravastatin 80 mg PO DAILY 30 days sennosides-docusate sodium 8.6-50 mg (Senna Plus) 1 tab-cap PO BEDTIME Tobacco use date assessed: 03/07/24 Fall risk assessment: No Falls in past year Last assessed Fall Risk: 11/05/24 Dental Screening Dental Screen Date: 03/07/24 HPI PE HPI Details R chest pain to the R shoulder pain after eating. gerd - PFSH Medical History Hiatal hernia Tubular adenoma Kidney stones Annual physical exam Gout GERD (gastroesophageal reflux disease) Hypertension Hypercholesterolemia Anxiety and depression Asthma Surgical History History of esophagogastroduodenoscopy (EGD) H/O colonoscopy History of surgery History of tonsillectomy Family History (Updated 11/05/24 @ 14:19 by Cely Beatty MD) Brother Heart attack Father Heart attack Mother Heart attack, Onset Age: 90 Sister Heart attack Social History (Updated 11/05/24 @ 14:20 by Cely Beatty MD) Housing: House Alcohol intake: current Alcohol intake frequency: does not drink Comment: once a month 2-4 drinks Patient Tobacco Use Status: Former Tobacco user Tobacco use type: Cigar Years Smoked: cigar in life < 10 e-Cigarette/Vaping Use: Never Used Second Hand Smoke Exposure: Yes service: No Current occupational status: retired Cognitive needs: No Hearing needs: No Vision needs: Yes Questionnaire PHQ-9 Over the last 2 weeks, how often have you been bothered by any of the following problems? 1. Little interest or pleasure in doing things: not at all 2. Feeling down, depressed, or hopeless: not at all 3. Trouble falling or staying asleep, or sleeping too much: not at all 4. Feeling tired or having little energy: not at all 5. Poor appetite or overeating: not at all 6. Feeling bad about yourself - or that you are a failure or have let yourself or your family down: not at all 7. Trouble concentrating on things, such as reading the newspaper or watching television: not at all 8. Moving or speaking so slowly that other people could have noticed. Or the opposite - being so fidgety or restless that you have been moving around a lot more than usual: not at all 9. Thoughts that you would be better off or of hurting yourself in some way: not at all Total score: 0 Depression Screening Interpretation: Negative Depression Screening Done: Yes Source: Developed by Drs. Stanley Shen, Jyoti Velazquez, Rodríguez Sullivan and colleagues, with an educational julio césar from [employer]. Thrive Questionnaire Date Thrive assessed: 11/05/24 I am a: Patient What is your living situation today?: I have a steady place to live Within the past 12 months, did the food you bought not last and you didn't have the money to get more?: Never true Within the past 12 months, did you worry whether your food would run out before you got money to buy more?: Never true Do you have trouble paying for medicines?: No Do you have trouble getting transportation to medical appointments?: No Do you have trouble paying your heating and electricity bill?: No Do you have trouble taking care of your child, family member or friend?: No Do you have trouble with day-to-day activities such as bathing, preparing meals, shopping, managing finances, etc.?: No Are you currently unemployed and looking for a job?: No Are you interested in more education?: No Please select the resources that you would like help with: None Currently or been in a relationship where the following occur: No concerns reported THRIVE Score: 0 AUDIT C Alcohol Use Questionnaire (AUDIT-C) 1. How often do you have a drink containing alcohol?: Monthly or less 2. How many drinks containing alcohol do you have on a typical day when you are drinking?: 3 or 4 3. How often do you have six or more drinks on one occasion?: Less than monthly Total Score: 3 HORTENSIA-7 AMB Questionnaire HORTENSIA-7 Date HORTENSIA - 7 assessed: 11/05/24 Feeling nervous, anxious, or on edge: 0 = Not at all Not being able to stop or control worryin = Not at all Worrying too much about different things: 0 = Not at all Trouble relaxin = Not at all Being so restless that it is hard to sit still: 0 = Not at all Becoming easily annoyed or irritable: 1 = Several days Feeling afraid as if something awful might happen: 0 = Not at all Total HORTENSIA-7 score (0-4 normal; 5-9 mild; 10-14 moderate; 15-21 severe): 1 Source: Developed by Drs. Stanley Shen, Jyoti Velazquez, Rodríguez Sullivan and colleagues, with an educational julio césar from [employer]. HORTENSIA-7 Assessment Billing HORTENSIA-7 Assessment Tool: HORTENSIA-7 Assessment 98335 Review of Systems Const Denies poor appetite and Denies weakness Eyes Denies no additional complaints ENT Reports Normal hearing present, Denies dizziness, Denies nasal congestion, Denies tinnitus and Denies sore throat Card Denies chest pain, Denies syncope, Denies rapid heart rate and Denies dyspnea Resp Denies cough and Denies dyspnea GI Denies change in stool character, Reports constipation, Denies diarrhea, Denies nausea and Denies vomiting Denies dysuria and Denies urinary frequency Neuro Reports Normal hearing present, Denies confusion, Denies dizziness, Denies syncope and Denies weakness Psych Denies confusion Physical exam (Primary Care) Vital Signs: Last Vital Signs Pulse 83 11/05/24 13:57 BP 136/72 11/05/24 13:57 Pulse Ox 96 11/05/24 13:57 Oxygen Delivery Method Room Air 11/05/24 13:57 BMI result Body Mass Index 25.8 Tobacco/Smoking Status: Tobacco use Status Tobacco use date assessed 03/07/24 11/05/24 13:58 Patient Tobacco Use Status Former Tobacco user 11/05/24 14:20 Tobacco use type Cigar 11/05/24 14:20 e-Cigarette/Vaping Use Never Used 11/05/24 14:20 PHQ-9: PHQ-9 Score PHQ-9: Total score 0 11/05/24 14:14 Depression Screening Interpretation: Negative Thrive Assessment: Date of Thrive Assessment Date Thrive assessed 11/05/24 11/05/24 13:58 Currently or been in a relationship where the following occur: No concerns reported Const General: No confusion Orientation/consciousness: No confusion HENMT Head: Yes normocephalic Ears: external ears normal and TM's normal bilaterally Face and sinus: Yes normal facial exam Mouth: moist mucous membranes Throat: Yes tonsils normal Eyes Conjunctivae: conjunctivae normal Pupils: Equal, round and reactive pupils present and Pupil accommodation reflex normal Direct Ophthalmoscopy: normal light reflex Neck Neck: No lymphadenopathy Thyroid: Thyroid normal Chest Chest palpation & inspection: normal inspection of the chest Resp Effort & Inspection: normal respiratory effort and no audible wheezes Auscultation: clear to auscultation bilaterally, no crackles, no wheezes and lung sounds not diminished Cardio Rate: regular rate Rhythm: regular rhythm Peripheral pulses: radial pulses present and dorsalis pedis present GI Other: guaic neg prostate N Palpation (GI): no masses Auscultation: normal bowel sounds and normoactive bowel sounds Rectal Exam - Male: Yes deferred Male General Exam: Yes normal external exam Skin General skin exam: no rashes or lesions noted Rashes: no rashes Neuro General: No confusion Cranial nerves: Yes Equal, round and reactive pupils present and Yes Normal hearing present Cognition (Neuro): normal cognition Gait exam (Neuro): Normal gait present Motor exam (neuro): 5/5 motor strength present throughout Deep tendon reflexes (DTR's): Right brachioradialis reflex intensity grade: 2+, Left brachioradialis reflex intensity grade: 2+, Right patellar reflex intensity grade: 2+ and Left patellar reflex intensity grade: 2+ Extrem General: No edema Coding Level of Care Code Est Pt Prev Care >65y(54460) Diagnoses Annual physical exam Z00.00 Mild intermittent asthma without complication J45.20 Asthma complication type: uncomplicated Asthma persistence: intermittent Asthma severity: mild Gastroesophageal reflux disease without esophagitis K21.9 Esophagitis presence: without esophagitis Essential hypertension I10 Hypertension type: essential hypertension Hypercholesterolemia E78.00 Depression, major, recurrent F33.9 RUQ abdominal pain R10.11 Additional Codes HORTENSIA-7 Assessment Billing - HORTENSIA-7 Assessment Tool: HORTENSIA-7 Assessment 96802 ([id number]) Assessment & Plan Assessment & Plan (1) Annual physical exam: Code(s): Z00.00 - Encounter for general adult medical examination without abnormal findings Category: Medical Plan: Patient is advised to eat healthy, keep well hydrated, keep active and have adequate sleep. (2) Asthma: Comment: PFT December 2009 Code(s): J45.909 - Unspecified asthma, uncomplicated Category: Medical Qualifiers: Asthma complication type: uncomplicated Asthma persistence: intermittent Asthma severity: mild Qualified Code(s): J45.20 - Mild intermittent asthma, uncomplicated Plan: Continue with albuterol inhaler as needed (3) GERD (gastroesophageal reflux disease): Code(s): K21.9 - Gastro-esophageal reflux disease without esophagitis Category: Medical Qualifiers: Esophagitis presence: without esophagitis Qualified Code(s): K21.9 - Gastro-esophageal reflux disease without esophagitis Plan: Avoid the foods that causes that usually spicy foods, tomato products, juices, coffee, soda and foods that your sensitive to. After eating do not lie down, allow 3-4 hours before in lie down. And keep the head of bed above 30 degrees to avoid the acid from going up. (4) Hypertension: Code(s): I10 - Essential (primary) hypertension Category: Medical Qualifiers: Hypertension type: essential hypertension Qualified Code(s): I10 - Essential (primary) hypertension Plan: Continue with blood pressure medication. Decrease salt intake and exercise continue with lisinopril 30 mg once a day (5) Hypercholesterolemia: Code(s): E78.00 - Pure hypercholesterolemia, unspecified Category: Medical Plan: Avoid fried foods, chicken skin, eggs, butter margarine, pastries and meat. Be it pork or beef they have a lot of cholesterol on pravastatin 80 mg once a day will request for blood work for February (6) Depression, major, recurrent: Comment: [facility] DrMoe Wright mary [place]08/2019 Code(s): F33.9 - Major depressive disorder, recurrent, unspecified Category: Medical Plan: Continue with counseling and therapy (7) RUQ abdominal pain: Code(s): R10.11 - Right upper quadrant pain Category: Medical Plan History of Present Illness The patient is a 69-year-old male presenting for a physical examination and wellness visit. The patient has a history of asthma, which requires the use of an albuterol inhaler more frequently during the summer months, approximately two to three times a week. Previously, a controller inhaler was used, and the patient is considering resuming it, with Symbicort being a potential option. Hypertension is managed with lisinopril 30 mg daily, and the patient reports good blood pressure control. Hypercholesterolemia is treated with pravastatin 80 mg daily, with the last blood work in February showing an LDL of 126 mg/dL. The patient experiences gastroesophageal reflux disease (GERD) symptoms, which are managed with lifestyle modifications such as avoiding lying down immediately after eating and elevating the head of the bed. The symptoms are not severe enough to warrant further testing at this time. The patient has a history of gout and major depression, with ongoing counseling and therapy for depression. In October, the patient had a COVID-19 infection, with no ongoing respiratory issues reported since recovery. A small umbilical hernia is present, but it is not causing any pain or complications. The patient suspects a gallbladder issue due to pain in the right upper quadrant that occurs after eating certain foods, but no definitive diagnosis has been made. Arthritis symptoms have been noted in the fingers, with a dull ache present, and carpal tunnel syndrome has been more symptomatic this year. Health Maintenance - Colonoscopy performed in November 2023, next due in 2028 - Vaccinations: Shingles, Tetanus, Pneumonia up to date - Lifestyle modifications for GERD: Avoid lying down after eating, elevate head of bed Social History - Alcohol consumption: Rare, mostly during summer vacations, approximately once a month - Tobacco use: History of occasional cigar use, less than 10 in lifetime, no current use - Recreational drug use: Denied - Family history: Father, mother, brother, and sister with history of heart attacks - Pet ownership: Has a cat, aware of potential allergy issues Review of Systems - General: Denies fever, night sweats - Cardiovascular: Denies chest pain, palpitations, syncope - Respiratory: Denies dyspnea, cough, wheezing - Gastrointestinal: Reports intermittent heartburn, denies nausea, vomiting - Musculoskeletal: Reports right upper quadrant pain, denies joint swelling - Neurological: Denies dizziness, reports balance issues - Genitourinary: Denies dysuria, hematuria Physical Exam General: Cooperative, healthy appearing, comfortable, no acute distress and well developed Orientation: Patient oriented x3 Limitations: No limitations Head: Normal to inspection Ears: Hearing seems to be pretty good Nose: Normal external nose present Face and sinus: Normal facial exam, sinuses just don't ever stop dripping Eyes: Appearance normal, both eyes and all related structures Neck: Normal visual inspection and Yes full ROM Respiratory: Normal respiratory effort and able to speak in complete sentences. Clear to auscultation bilaterally Cardiovascular: Regular rate and rhythm. Normal S1 and S2 GI: Normal to inspection. Soft to palpation and nontender, except for a small umbilical hernia noted. Pain suspected to be related to gallbladder after eating certain foods, but no pain upon palpation. Skin: No rashes or lesions noted Neuro: Patient oriented x3, balance gets a little funny sometimes but no falls in the last six months Extremities: Normal to inspection, some soreness in fingers suspected to be arthritis, carpal tunnel symptoms noted with pins and needles and numbness. Results - Labs: February blood work showed normal blood count, electrolytes, renal function, blood sugar, liver function, cholesterol with LDL of 126 mg/dL Plan Patient was informed and verbally consented to the use of an ambient scribe for clinic note documentation during this visit. 1. Asthma The patient will continue using the albuterol inhaler as needed, especially during the summer months when symptoms are more frequent. A controller inhaler, such as Symbicort, will be prescribed to manage symptoms more effectively and prevent exacerbations. 2. Hypertension Hypertension is currently managed with lisinopril 30 mg daily, and the patient reports good control of blood pressure. 3. Hypercholesterolemia The patient is on pravastatin 80 mg daily, with recent labs showing an LDL of 126 mg/dL. 4. Gastroesophageal Reflux Disease (Gerd) GERD symptoms are managed with lifestyle modifications, including avoiding lying down after meals and elevating the head of the bed. Further testing is not deemed necessary at this time unless symptoms worsen. 5. Gout Gout management was not specifically discussed during this visit, but it remains a part of the patient's medical history. 6. Major Depression The patient continues with counseling and therapy for depression management. 7. Covid-19 Infection The patient had a COVID-19 infection in October, with no ongoing respiratory issues reported since recovery. 8. Small Umbilical Hernia The small umbilical hernia is asymptomatic and does not require intervention at this time. 9. Suspected Gallbladder Issue The patient reports right upper quadrant pain after eating certain foods, and an ultrasound of the abdomen is planned to evaluate the gallbladder. 10. Arthritis The patient reports arthritis symptoms in the fingers, with a dull ache present. 11. Carpal Tunnel Syndrome Carpal tunnel syndrome symptoms have been more pronounced this year, but specific management was not discussed during this visit. Discussion Notes During the visit, we discussed the management of asthma with the continuation of the albuterol inhaler and the potential addition of a controller inhaler like Symbicort. We reviewed the patient's hypertension and hypercholesterolemia management, confirming the current medication regimen of lisinopril and pravastatin. Lifestyle modifications for GERD were emphasized, and the patient was advised to monitor symptoms and report any worsening. An ultrasound of the abdomen was ordered to investigate the suspected gallbladder issue. We also discussed the patient's family history of heart disease and the importance of maintaining regular screenings and preventative care. Patient Instructions - Continue using albuterol inhaler as needed, especially during the summer months. - Consider starting a controller inhaler like Symbicort to manage asthma symptoms. - Maintain current medication regimen for hypertension and hypercholesterolemia. - Follow lifestyle modifications for GERD: avoid lying down after meals and elevate the head of the bed. - Monitor GERD symptoms and report any worsening. - Await scheduling for an abdominal ultrasound to evaluate gallbladder issues. - Continue with counseling and therapy for depression. Orders: Orders Complete Blood Count Auto Diff 3 Months I10 - Essential (primary) hypertension Comprehensive Met. Panel 3 Months I10 - Essential (primary) hypertension Free T4 (Free Thyroxine) 3 Months I10 - Essential (primary) hypertension Thyroid Stimulating Hormone 3 Months I10 - Essential (primary) hypertension Lipid Panel 3 Months E78.00 - Pure hypercholesterolemia, unspecified, I10 - Essential (primary) hypertension Prostate Specific Antigen Scr 3 Months I10 - Essential (primary) hypertension Uric Acid 3 Months I10 - Essential (primary) hypertension US abdomen complete Today R10.11 - Right upper quadrant pain, R79.89 - Other specified abnormal findings of blood chemistry Vitamin B12 and Folate 3 Months I10 - Essential (primary) hypertension Medications: New budesonide-formoterol 80-4.5 mcg/actuation (Symbicort) 2 puffs inhalation BID 10.2 grams 12RF J45.20 - Mild intermittent asthma, uncomplicated
--- OUTSIDE RECORDS SUMMARY | 2024-11-05 15:04 | XMS_ITS | Encounter Summary ---
Author Organization [facility] Address [address] [place] [address] Care Team Providers Care Fire And Safety Helper Name Role Phone Cely Beatty MD Primary Care Provider Unavailabl e Encounter Details Date Type Department Care Team Description 05/29/2017 Release of Information Medical Records [address] [place] [id number] Abstract, Provider Social History Tobacco Use Types Packs/Day Years Used Date Smoking Tobacco: Never Smokeless Tobacco: Never Sex Assigned at Date Recorded Not on file documented as of this encounter Plan of Treatment Not on file documented as of this encounter Visit Diagnoses Not on filedocumented in this encounter Care Teams Fire And Safety Helper Relationship Specialty Start Date End Date Cely Beatty MD PCP - General Internal Medicine 02/20/17 documented as of this encounter
== END 2024-11-05 14:35 | disposition home or self-care (01) ==
PROVIDERS: PCP Internal Medicine; Visit Provider Internal Medicine
DX: Z00.00 Encounter for general adult medical examination without abnormal findings (principal); J45.20 Mild intermittent asthma, uncomplicated; K21.9 Gastro-esophageal reflux disease without esophagitis; I10 Essential (primary) hypertension; E78.00 Pure hypercholesterolemia, unspecified; F33.9 Major depressive disorder, recurrent, unspecified; R10.11 Right upper quadrant pain

== ENCOUNTER → 2024-11-05 13:51 | Outpatient (BNVA) | payer MEDICARE, SELFPAY | PROVIDERS: PCP Internal Medicine; Visit Provider Internal Medicine | DX: Z00.00 Encounter for general adult medical examination without abnormal findings (principal); J45.20 Mild intermittent asthma, uncomplicated; K21.9 Gastro-esophageal reflux disease without esophagitis; I10 Essential (primary) hypertension; E78.00 Pure hypercholesterolemia, unspecified; F33.9 Major depressive disorder, recurrent, unspecified; R10.11 Right upper quadrant pain; M10.9 Gout, unspecified; K42.9 Umbilical hernia without obstruction or gangrene; G56.00 Carpal tunnel syndrome, unspecified upper limb; R79.89 Other specified abnormal findings of blood chemistry | CPT/HCPCS: 96127; 99397 ==

== ENCOUNTER 2025-01-10 09:59 | Outpatient (REF) | payer MEDICARE, SELFPAY ==
--- OUTSIDE RECORDS SUMMARY | 2023-11-10 06:30 | XMS_ITS ---
Author Organization [facility] Address [address] [place] [address] Care Team Providers Care Firearms Model Maker Name Role Phone Po Cely RODRIGUEZ Primary Care Provider Stanley Morton [phone] REASON FOR VISIT screening,hx polyps Problems Problem Type SNOMED Code ICD Code Onset Dates Problem Status W/U Status Risk Notes Problem History of polyp of colon (situation) (742686046) Personal history of colonic polyps (Z86.010) Active confirmed Problem Diverticular disease of colon (037381775) Diverticulosis of large intestine without perforation or abscess without bleeding (K57.30) Active confirmed Encounters Encounter Location Date Provider Diagnosis [facility] [place] Outpatient [address] [place] [phone] 11/10/2023 Stanley Mark Colon cancer scree adrianna Z12.11 ; Personal history of colonic polyps Z86.010 ; Diverticulosis of large intestine without perforation or abscess without bleeding K57.30 and Other hemorrhoids K64.8 Assessments Encounter Date Diagnosis (ICD Code) Assessment Notes Treatment Notes Treatment Clinical Notes Section Notes 11/10/2023 Colon cancer screening (ICD-10 - Z12.11) 11/10/2023 Personal history of colonic polyps (ICD-10 - Z86.010) 11/10/2023 Diverticulosis of large intestine without perforation or abscess without bleeding (ICD-10 - K57.30) 11/10/2023 Other hemorrhoids (ICD-10 - K64.8) Plan Of Treatment No Information Progress Notes * ELAINE KEY CDOB:1955 (69 yo M)Acc No.[id number]:11/10/2023 COLON WITH MAC Patient: ELAINE ARRINGTON Provider: Rianna Mark MD :1955 A ge:68 Y S ex:Male Date:11/10/2023 Address[address] [facility] Pcp:Cely Beatty MD Subjective: * Chief Complaints: * 1 . Screening,hx polyps. * Medical History: Objective: * Vitals: Assessment: * Assessment: 1. C olon cancer screening - Z12.11 (Primary) 2 . P ersonal history of colonic polyps - Z86.010 3 . D iverticulosis of large intestine without perforation or abscess without bleeding - K57.30 4 . O ther hemorrhoids - K64.8 ? Plan: * Treatment: * Procedure Codes: G 0105 COLOREC CANCR SCR; COLNSCPY HI RISK, 0529F INTRVL 3+YRS PTS CLNSCP DOCD, Modifiers: 8P , 0528F RCMND FLW-UP 10 YRS DOCD, Modifiers: 1P * Preventive Medicine: BONILLA Screening: C olonoscopy W as interval between colonoscopies three years or more? Y es, W as last colonoscopy performed three or more years ago? Y es. * * The named appointment provid er may or may not be the originator of this progress note, and it is not deemed complete until electronically signed by the appointment provider. Sign off status: Pending * Provider: Rianna Mark MD Date: 0 11/10/2023 Generated for Lindsay alonso/Mukund/Gertrudesmitting on: 03/12/2024 11:43 AM EST
--- NOTE | ~2025-01-10 | US_ITS ---
EXAMINATION: US ABDOMEN HISTORY: R79.89 - Other specified abnormal findings of blood chemistry TECHNIQUE: Real-time grayscale ultrasound imaging of the abdomen was performed and images were reviewed. COMPARISON: There are no prior studies available for comparison. FINDINGS: Liver: The right lobe of the liver measures 15.7 cm in size. The left lobe of the liver measures 8.7 cm in size. The liver demonstrates normal homogeneous echotexture. No focal mass or intrahepatic biliary ductal dilatation is identified. There is normal hepatopedal flow in the portal vein. Gallbladder and biliary tree: The gallbladder is unremarkable, without evidence of calculi, wall thickening, or pericholecystic fluid. There is no sonographic [place] sign. The common bile duct is normal in caliber measuring 3 mm. Kidneys: The right kidney measures 11.8 cm in length. The left kidney measures 11.9 cm in length. There are tiny nonshadowing echogenic foci in the right kidney which may represent vessels or possibly tiny calculi. The kidneys are otherwise unremarkable, without evidence of masses or hydronephrosis. Pancreas: The pancreatic head, neck, and body demonstrate mildly heterogeneous echotexture, but are otherwise unremarkable. The pancreatic tail is obscured by bowel gas. Spleen: The spleen is normal in size and contour, measuring 10.6 cm in length. Abdominal aorta and inferior vena cava: The visualized portions of the abdominal aorta and inferior vena cava are normal in caliber. There is no free fluid in the abdomen. US/US abdomen complete IMPRESSION: Essentially unremarkable abdominal ultrasound. Electronically signed by: Stanley Villarreal MD 01/10/2025 10:45 AM GERMAN
--- OUTSIDE RECORDS SUMMARY | 2025-01-10 11:43 | XMS_ITS | Patient Health Record ---
Author Organization [facility] Address [address] [place] [id number] Care Team Providers Care Clamp Carrier Operator Name Role Phone Po Cely RODRIGUEZ Primary Care Provider Stanley Morton Unavailable [phone] Allergies Allergen (clinical drug ingredient) Drug/Non Drug Allergy documented on EMR Reaction Allergy Type Onset Date Status Penicillin Unknown Drug Allergy Active mold (uncoded) Unknown Allergy Activ e Reason For Referral No Information Medications Medication SIG (Take, Route, Frequency, Duration) Notes Start Date End Date Status PARoxetine HCl ER 25 MG TAKE ONE TABLET BY MOUTH EVERY DAY Oral; Duration: 30 Active Arnuity Ellipta 200 MCG/ACT INHALE ONE INHALATION ONCE DAILY. Inhalation; Duration: 30 Active Lisinopril 10 MG 1 tablet [...] 1 puff Inhalation Twice a day Active Immunizations Vaccine Route Administration Date Status Comme nts Influenza Unknown 12/28/2017 Administered Influenza Unknown 12/14/2017 Administered Influenza Unknown 11/22/2022 Administered Social History Tobacco Use: Social History Observation Description Date Details (start date - stop date) Never Smoker NA - NA Tobacco Use/Smoking Question Answer Notes Patient is [...] Never (0 point) Points 1 Interpretation Negative Section Notes: Nonsmoker; no sig alcohol Nonsmoker; heavy EtOH in the 90's, but presently none Nonsmoker; heavy EtOH in the 90's, but presently none Problems Problem Type SNOMED Code ICD Code Onset Dates Problem Status W/U Status Risk Notes Problem Colon cancer screening (199395860) Colon cancer screening (Z12.11) Active confirmed Problem Screening for malignant neoplasm of colon (785845555) Encounter for screening for malignant neoplasm of colon (Z12.11) Active confirmed Problem History of adenomatous polyp of colon (714379723) History of adenomatous polyp of colon (Z86.010) Active confirmed Problem History of polyp of colon (situation) (538164521) Personal history of colonic polyps (Z86.010) Active confirmed Problem Diverticular disease of colon (256976951) Diverticulosis of large intestine without perforation or abscess without bleeding (K57.30) Active confirmed Problem Gastroesophageal reflux disease (139926555) GERD (gastroesophageal reflux disease) (K21.9) Active confirmed Problem Barium swallow abnormal (731628523) Abnormal barium swallow (R93.3) Active confirmed Problem Pre-procedure evaluation check (221288983) Pre-procedural examination (Z01.818) Active confirmed Plan Of Treatment Future Test Test Name Order Date COLONOSCOPY 01/10/2018 UPPER GI ENDOSCOPY 11/16/2018 COLONOSCOPY 08/01/2023 Insurance Providers Payer Name Payer Address Payer Phone Subscriber Number Group Number Insured Name Patient Relationship to Insured Coverage Start Date Coverage End Date [facility] [address] [place], [place] [id number] [phone] [id number] ELAINE MEYER Self - patient is the insured Medical (General) History Medical History History ICD Code Denies SD,DM,CVA,renal disease Asthma Negative screening colonosco py in 11/2007--- mild sigmoid diverticulosis and internal hemorrhoids Depression/Anxiety HTN Kidney stones Gout Colonoscopy in 05/2018 with removal of a small tubular adenoma EGD 11/2018 revealed a small hiatal hernia and changes of reflux, but no evidence of any esophagitis or Jarvis's esophagus Surgical History Surgery Date(Month/Year) cyst removal tonsillectomy
== END 2025-01-10 10:00 | disposition home or self-care (01) ==
LOC: HO.US 09:59
PROVIDERS: PCP Internal Medicine; Visit Provider Internal Medicine
DX: R10.11 Right upper quadrant pain (principal); R79.89 Other specified abnormal findings of blood chemistry
CPT/HCPCS: 76700

== ENCOUNTER → 2025-01-10 10:01 | Outpatient (BNV) | payer MEDICARE, SELFPAY | PROVIDERS: PCP Internal Medicine; Visit Provider Radiology Diagnostic Radiology | DX: R79.89 Other specified abnormal findings of blood chemistry (principal) | CPT/HCPCS: 76700 ==

== ENCOUNTER 2025-02-25 08:59 | Outpatient (REF) | payer MEDICARE, SELFPAY ==
--- OUTSIDE RECORDS SUMMARY | 2023-11-10 06:30 | XMS_ITS ---
Author Organization [facility] Address [address] [place] [address] Care Team Providers Care Glass Deposition Tender Name Role Phone Po Cely RODRIGUEZ Primary Care Provider Stanley Morton [phone] REASON FOR VISIT screening,hx polyps Problems Problem Type SNOMED Code ICD Code Onset Dates Problem Status W/U Status Risk Notes Problem History of polyp of colon (situation) (883610395) Personal history of colonic polyps (Z86.010) Active confirmed Problem Diverticular disease of colon (464513513) Diverticulosis of large intestine without perforation or abscess without bleeding (K57.30) Active confirmed Encounters Encounter Location Date Provider Diagnosis [facility] [place] [address] [place] [phone] 11/10/2023 Stanley Mark Colon cancer scree adrianna [...] * ELAINE KEY CDOB:1955 (69 yo M)Acc No.[id number]:11/10/2023 COLON WITH MAC Patient: ELAINE ARRINGTON Provider: Rianna Mark MD :1955 A ge:68 Y S ex:Male Date:11/10/2023 Address:[address] [facility] Pcp:Cely Beatty MD Subjective: * Chief Complaints: * S creening,hx polyps Assessment: * Assessment: 1. C olon cancer screening - Z12.11 (Primary) 2 . P ersonal history of colonic polyps - Z86.010 3 . D iverticulosis of large intestine without perforation or abscess without bleeding - K57.30 4 . O ther hemorrhoids - K64.8 ? Plan: * Procedure Codes: G 0105 COLOREC CANCR SCR; COLNSCPY HI [id number] INTRVL 3+YRS PTS CLNSCP DOCD, Modifiers: 8P 0528F RCMND FLW-UP 10 YRS DOCD, Modifiers: 1P * Preventive Medicine: BONILLA Screening: C olonoscopy W as interval between colonoscopies three years or more? Y es, W as last colonoscopy performed three or more years ago? Y es. Billing Information: * Procedure Codes: G0105 COLOREC CANCR SCR; COLNSCPY HI RISK. 0529F INTRVL 3+YRS PTS CLNSCP DOCD. Modifiers: 8P 0528F RCMND FLW-UP 10 YRS DOCD. Modifiers: 1P * The named appointment provid er may or may not be the originator of this progress note, and it is not deemed complete until electronically signed by the appointment provider. Sign off status: Pending * Provider: Rianna Mark MD Date: 0 11/10/2023 Generated for Lindsay alonso/Mukund/eTransmitting on: 1 04/28/2024 09:27 AM EST
--- OUTSIDE RECORDS SUMMARY | 2025-02-25 09:27 | XMS_ITS | Patient Health Record ---
Author Organization [facility] Address [address] [place] [id number] Care Team Providers Care Dry Cleaning Checker Name Role Phone Cely Beatty MD Primary Care Provider Stanley Morton Unavailable [phone] Allergies Allergen (clinical drug ingredient) Drug/Non Drug Allergy documented on EMR Reaction Allergy Type Onset Date Status mold (uncoded) Unknown Allergy Activ e Penicillin Unknown Drug Allergy Active Reason For Referral No Information Medications Medication SIG (Take, Route, Frequency, Duration) Notes Start Date End Date Status PARoxetine HCl ER 25 MG Tablet Extended Release 24 Hour TAKE ONE TABLET BY MOUTH EVERY DAY Oral; Duration: 30 Active Arnuity Ellipta 200 MCG/ACT Aerosol Powder Breath Activated INHALE ONE INHALATION ONCE DAILY. Inhalation; Duration: 30 Active Lisinopril 10 MG Tablet 1 tablet Orally Once a day Active Flonase 50 MCG/DOSE Inhaler 1 spray in each nostril Nasally Once a day Active Hydrocortisone 0.5 % Cream 1 application to affected area Externally Twice a day Active Pravastatin Sodium 40 MG Tablet 1 tablet Orally Once a day Active Indomethacin 50 MG Capsule 1 capsule with food or milk Orally prn rare occasion Active ALPRAZolam 0.25 MG Tablet 1 tablet Orally as needed Not-Taking/P RN Claritin 10 MG Tablet 1 tablet Orally Once a day Active ProAir HFA 108 (90 Base) MCG/ACT Aerosol Solution 2 puffs as needed Inhalation every 6 hrs Active Flovent HFA 110 MCG/ACT Aerosol 1 puff Inhalation Twice a day Active Immunizations Vaccine Route Administration Date Status Comme nts Influenza Unknown 12/14/2017 Administered Influenza Unknown 12/28/2017 Administered Influenza Unknown 11/22/2022 Administered Social History Tobacco Use: Social History Observation Description Date Details (start date - stop date) Never Smoker NA - NA Social History Drugs/Alcohol: Social Info Question Answer Notes Alcohol Screen Did you have a drink containing alcohol in the past year? Yes How often did you have a drink containing alcohol in the past year? Monthly or less (1 point) How many drinks did you have on a typical day when you were drinking in the past year? 1 or 2 drinks (0 point) How often did you have 6 or more drinks on one occasion in the past year? 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 [employer] Section Notes: Nonsmoker; no sig alcohol Nonsmoker; heavy EtOH in the 90's, but presently none Nonsmoker; heavy EtOH in the 90's, but presently none Problems Problem Type SNOMED Code ICD Code Onset Dates Problem Status W/U Status Risk Notes Problem Colon cancer screening (114038209) Colon cancer screening (Z12.11) Active confirmed Problem Screening for malignant neoplasm of colon (329227894) Encounter for screening for malignant neoplasm of colon (Z12.11) Active confirmed Problem History of adenomatous polyp of colon (530785349) History of adenomatous polyp of colon (Z86.010) Active confirmed Problem History of polyp of colon (situation) (381892091) Personal history of colonic polyps (Z86.010) Active confirmed Problem Diverticular disease of colon (168142137) Diverticulosis of large intestine without perforation or abscess without bleeding (K57.30) Active confirmed Problem Gastroesophageal reflux disease (064205930) GERD (gastroesophageal reflux disease) (K21.9) Active confirmed Problem Barium swallow abnormal (444785737) Abnormal barium swallow (R93.3) Active confirmed Problem Pre-procedure evaluation check (976694244) Pre-procedural examination (Z01.818) Active confirmed Plan Of Treatment Future Test Test Name Order Date COLONOSCOPY 01/10/2018 UPPER GI ENDOSCOPY 11/16/2018 COLONOSCOPY 08/01/2023 Insurance Providers Payer Name Payer Address Payer Phone Subscriber Number Group Number Insured Name Patient Relationship to Insured Coverage Start Date Coverage End Date [facility] [address] [place], [place] [id number] ELAINE MEYER Self - patient is the insured Medical (General) History Medical History History ICD Code Denies [place],DM,CVA,renal disease Asthma Negative screening colonosco py in 11/2007--- mild sigmoid diverticulosis and internal hemorrhoids Depression/Anxiety HTN Kidney stones Gout Colonoscopy in 05/2018 with removal of a small tubular adenoma EGD 11/2018 revealed a small hiatal hernia and changes of reflux, but no evidence of any esophagitis or Jarvis's esophagus Surgical History Surgery Date(Month/Year) cyst removal tonsillectomy
[2025-02-25 10:43] LABS: MANUAL DIFF FLAG NO
[2025-02-25 10:50] LABS: Hematocrit 44.3 % (42.0-52.0); Hemoglobin 15.0 g/dl (14.0-18.0); Imm Gran Abs Auto 0.01 X10*3/uL (0.00-0.03); Imm Gran Pct Auto 0.2 % (0.0-0.4); Lymphocytes Absolute Auto 1.4 X10*3/uL (1.2-4.9); Mean Corpuscular HGB Conc 33.9 g/dl (31.0-36.0); Mean Corpuscular Hemoglobin 32.5 pg (27.0-33.0); Mean Corpuscular Volume 96.1 fL (80.0-98.0); NRBC Abs Auto 0.000 X10*3/uL (0.0-0.012); NRBC Pct Auto 0.0 /100WBC (0.0-0.2); Platelet Count 223 X10*3/uL (160-400); Red Blood Count 4.61 X10*6/uL (4.60-5.80); White Blood Count 5.3 X10*3/uL (4.8-10.8)
[2025-02-25 11:17] LABS: Alanine Aminotransferase 24 U/L (0-40); Albumin Level 4.3 g/dL (3.5-5.0); Anion Gap 12 (12-20); Aspartate Amino Transferase 22 U/L (5-37); Blood Urea Nitrogen 16 mg/dL (9-16); Calcium 9.3 mg/dL (8.4-10.2); Carbon Dioxide 27 mmol/L (22-29); Chloride 110 mmol/L (96-108); Cholesterol 198 mg/dL (<200); Estimated Glomerular Filt Rate > 60; HDL Cholesterol 35 mg/dL (>40); Potassium 4.6 mmol/L (3.3-5.1); Sodium 144 mmol/L (135-145); Total Protein 6.6 g/dL (6.5-8.0); Triglycerides 168 mg/dL (<150); Uric Acid 6.6 mg/dL (3.4-7.0)
[2025-02-25 11:22] LABS: Free T4 (Free Thyroxine) 0.85 ng/dL (0.71-1.85); Thyroid Stimulating Hormone 1.34 uIU/mL (0.32-4.0)
[2025-02-25 11:26] LABS: Alkaline Phosphatase 77 U/L (39-117)
[2025-02-25 11:40] LABS: Folate 12.2 ng/mL (> or = 4.0); Vitamin B12 463 pg/mL (200-900)
== END 2025-02-25 09:00 ==
LOC: HO.10HDL 08:59
PROVIDERS: Visit Provider Internal Medicine
DX: I10 Essential (primary) hypertension (principal); E78.00 Pure hypercholesterolemia, unspecified; Z12.5 Encounter for screening for malignant neoplasm of prostate
CPT/HCPCS: 36415; 80053; 80061; 82607; 82746; 84153; 84439; 84443; 84550; 85025

== ENCOUNTER 2025-03-03 14:34 | Outpatient (AMB) | payer MEDICARE, SELFPAY ==
--- OUTSIDE RECORDS SUMMARY | 2023-11-10 06:30 | XMS_ITS ---
Author Organization [facility] Address [address] [place] [address] Care Team Providers Care Search Manager Name Role Phone Po Cely RODRIGUEZ Primary Care Provider Stanley Morton [phone] REASON FOR VISIT screening,hx polyps Problems Problem Type SNOMED Code ICD Code Onset Dates Problem Status W/U Status Risk Notes Problem History of polyp of colon (situation) (972038191) Personal history of colonic polyps (Z86.010) Active confirmed Problem Diverticular disease of colon (727467477) Diverticulosis of large intestine without perforation or abscess without bleeding (K57.30) Active confirmed Encounters Encounter Location Date Provider Diagnosis [facility] [place] Outpatient [address] [place] [phone] 11/10/2023 Stanley Mark Colon cancer scree adrianna [...] * ELAINE KEY CDOB:1955 (69 yo M)Acc No.[id number]:11/10/2023 COLON WITH MAC Patient: ELAINE ARRINGTON Provider: Rianna Mark MD :1955 A ge:68 Y S ex:Male Date:11/10/2023 Address:[address] [facility] Pcp:Cely Beatty MD Subjective: * Chief Complaints: [...] G 0105 COLOREC CANCR SCR; COLNSCPY HI [id number] INTRVL 3+YRS PTS CLNSCP DOCD, Modifiers: 8P [...] 11/10/2023 Generated for Lindsay alonso/Mukund/eTransmitting on: 1 04:55 PM EST
[2025-03-03 14:36] VITALS: BP 138/76; PULSE 77; O2SAT 98; BMI 26.5
--- NOTE | 2025-03-03 14:36 | MHC.PC.OV ---
Vital Signs 03/03/25 14:36 Height 5 ft 7 in Weight 169 lb BMI 26.5 BP 138/76 Blood Pressure Location Lt brachial Position Sitting Pulse 77 Pulse Source Pulse Oximeter Pulse Oximetry (%) 98 Oxygen Delivery Method Room Air Intake Visit Reasons: 3 months Allergies mold Allergy (Mild, Verified 03/03/25 14:36) ITCHING penicillin V Allergy (Unknown, Verified 03/03/25 14:36) Unknown Medication List - Last Reconciled 03/03/25 by Cely Beatty MD albuterol sulfate 90 mcg/actuation (Ventolin HFA) 2 puffs inhalation Q6H blood pressure monitor (Blood Pressure Kit) As directed budesonide-formoterol 80-4.5 mcg/actuation (Symbicort) 2 puffs inhalation BID hydrocortisone 2.5% (Proctosol HC) 1 appl [place] BID-QID PRN lisinopril 30 mg PO DAILY loratadine (Claritin) 10 mg PO DAILY paroxetine HCl ER 37.5 mg PO DAILY pravastatin 80 mg PO DAILY 30 days sennosides-docusate sodium 8.6-50 mg (Senna Plus) 1 tab-cap PO BEDTIME Tobacco use date assessed: 03/07/24 Fall risk assessment: No Falls in past year Last assessed Fall Risk: 03/03/25 Dental Screening Dental Screen Date: 03/07/24 HPI HPI Comments History of Present Illness Details History of Present Illness The patient is a 69-year-old male presenting for a follow-up visit for management of multiple chronic conditions and review of recent test results. His past medical history is significant for asthma, hypertension, hypercholesterolemia, GERD, gout, and depression. His last physical exam was in November. Recent workup includes an abdominal ultrasound for right upper quadrant pain, which was negative but did raise suspicion for small right renal calculi. His last bloodwork was in February 2023, which showed a normal blood count, good renal and liver function, and normal blood sugar, PSA, B12, folic acid, and thyroid levels. His sodium was high-normal, and uric acid was slightly elevated at 6.6. For hypercholesterolemia, he is on pravastatin 80 mg daily, but his LDL cholesterol has trended upwards from 96 in 2022 to 130 currently, and his triglycerides were 168. For hypertension, he takes lisinopril 30 mg daily with good blood pressure control. His asthma is managed with a Symbicort controller inhaler and albuterol as needed, though he reports infrequent use of the albuterol. For depression, he takes paroxetine and engages in counseling and therapy. He recently experienced bleeding hemorrhoids and has been taking senna once daily for constipation. He also reports recent cramps in his toes and lower legs, which he attributes to dehydration, and has a history of tendinitis in his right ankle. Health Maintenance - Last colonoscopy was November 2023. - Laboratory Screening: Labs were performed in February 2023, including a CBC, CMP, lipid panel, uric acid, PSA, B12, folic acid, and thyroid function tests. - Vaccinations: He is up to date on vaccinations, having recently received the flu shot. He previously received shingles and pneumonia shots. A tetanus shot will be due next year. - Diet and Lifestyle: The patient was counseled on increasing water intake for potential dehydration and prevention of renal calculi. - He was also counseled on diet in relation to his rising cholesterol levels. Social History - Diet: Reports increased food consumption during the holiday season, including deep dinners and parties. In the summer, he reports eating a lot of grains and vegetables. - Fluid intake: Drinks approximately 4-5 pints of water per day, not including coffee intake. - Mental Health: Engages in counseling and therapy for depression. - Access to Care: Patient reports insurance issues preventing him from seeing his previous psychiatric care providers at [facility]. Results - Labs (February 2023): - CBC: Normal blood count, not anemic. - CMP: Sodium high-normal, good potassium, good kidney function, normal liver function, normal blood sugar. - Lipid Panel: Triglycerides 168 mg/dL, LDL 130 mg/dL. - Uric Acid: 6.6. - Other: PSA, B12, folic acid, and thyroid levels were all within normal limits. - Imaging: - Abdominal Ultrasound: Negative for acute pathology causing right upper quadrant pain; noted possible small right renal calculi. [facility] Medical History Hiatal hernia Tubular adenoma Kidney stones Annual physical exam Gout GERD (gastroesophageal reflux disease) Hypertension Hypercholesterolemia Anxiety and depression Asthma Surgical History History of esophagogastroduodenoscopy (EGD) H/O colonoscopy History of surgery History of tonsillectomy Family History (Updated 11/05/24 @ 14:19 by Cely Beatty MD) Brother Heart attack Father Heart attack Mother Heart attack, Onset Age: 90 Sister Heart attack Social History (Updated 11/05/24 @ 14:20 by Cely Beatty MD) Housing: House Alcohol intake: current Alcohol intake frequency: does not drink Comment: once a month 2-4 drinks Patient Tobacco Use Status: Former Tobacco user Tobacco use type: Cigar Years Smoked: cigar in life < 10 e-Cigarette/Vaping Use: Never Used Second Hand Smoke Exposure: Yes service: No Current occupational status: retired Cognitive needs: No Hearing needs: No Vision needs: Yes Questionnaire PHQ-9 Over the last 2 weeks, how often have you been bothered by any of the following problems? 1. Little interest or pleasure in doing things: not at all 2. Feeling down, depressed, or hopeless: not at all 3. Trouble falling or staying asleep, or sleeping too much: not at all 4. Feeling tired or having little energy: several days 5. Poor appetite or overeating: not at all 6. Feeling bad about yourself - or that you are a failure or have let yourself or your family down: not at all 7. Trouble concentrating on things, such as reading the newspaper or watching television: several days 8. Moving or speaking so slowly that other people could have noticed. Or the opposite - being so fidgety or restless that you have been moving around a lot more than usual: not at all 9. Thoughts that you would be better off or of hurting yourself in some way: not at all Total score: 2 Source: Developed by Drs. Stanley Shen, Jyoti Velazquez, Rodríguez Sullivan and colleagues, with an educational julio césar from [employer]. Thrive Questionnaire Date Thrive assessed: 11/05/24 I am a: Patient What is your living situation today?: I have a steady place to live Within the past 12 months, did the food you bought not last and you didn't have the money to get more?: Never true Within the past 12 months, did you worry whether your food would run out before you got money to buy more?: Never true Do you have trouble paying for medicines?: No Do you have trouble getting transportation to medical appointments?: No Do you have trouble paying your heating and electricity bill?: No Do you have trouble taking care of your child, family member or friend?: No Do you have trouble with day-to-day activities such as bathing, preparing meals, shopping, managing finances, etc.?: No Are you currently unemployed and looking for a job?: No Are you interested in more education?: No Currently or been in a relationship where the following occur: No concerns reported THRIVE Score: 0 HORTENSIA-7 AMB Questionnaire HORTENSIA-7 Date HORTENSIA - 7 assessed: 11/05/24 Source: Developed by Drs. Stanley Shen, Jyoti Velazquez, Rodríguez Sullivan and colleagues, with an educational julio césar from [employer]. Review of Systems Narrative Review of Systems - Constitutional: Reports feeling off balance sometimes. - Respiratory: Denies increased use of his albuterol rescue inhaler. - Gastrointestinal: Reports recent minor bleeding from hemorrhoids. Reports occasional constipation, with some days of not having a bowel movement. - Musculoskeletal: Reports cramps in his toes and lower legs. Reports chronic tendinitis in his right ankle. - Neurological: Reports feeling off balance sometimes. Physical exam (Primary Care) Vital Signs: Last Vital Signs Pulse 77 03/03/25 14:36 BP 138/76 03/03/25 14:36 Pulse Ox 98 03/03/25 14:36 Oxygen Delivery Method Room Air 03/03/25 14:36 BMI result Body Mass Index 26.5 Tobacco/Smoking Status: Tobacco use Status Tobacco use date assessed 03/07/24 03/03/25 14:41 Patient Tobacco Use Status Former Tobacco user 03/03/25 14:41 Tobacco use type Cigar 03/03/25 14:41 e-Cigarette/Vaping Use Never Used 03/03/25 14:41 PHQ-9: PHQ-9 Score PHQ-9: Total score 2 03/03/25 14:53 Thrive Assessment: Date of Thrive Assessment Date Thrive assessed 11/05/24 03/03/25 14:41 Currently or been in a relationship where the following occur: No concerns reported Narrative Physical Exam - General: Patient is alert and oriented. - Vitals: Weight 144. Blood pressure noted as good. - Respiratory: Lungs were auscultated, no abnormal findings were reported. Const General: alert; No acute distress Eyes Conjunctivae: conjunctivae normal Resp Auscultation: clear to auscultation bilaterally Cardio Rate: regular rate Rhythm: regular rhythm GI Inspection: Yes normal to inspection Extrem General: Yes normal to inspection and No edema Coding Level of Care Code Est Pt Level 4 (36109) Add On Problem Visit Only Diagnoses Essential hypertension I10 Hypertension type: essential hypertension Hypercholesterolemia E78.00 Gastroesophageal reflux disease without esophagitis K21.9 Esophagitis presence: without esophagitis Mild intermittent asthma without complication J45.20 Asthma complication type: uncomplicated Asthma persistence: intermittent Asthma severity: mild Depression, major, recurrent F33.9 Assessment & Plan Assessment & Plan (1) Hypertension: Code(s): I10 - Essential (primary) hypertension Category: Medical Qualifiers: Hypertension type: essential hypertension Qualified Code(s): I10 - Essential (primary) hypertension Plan: Continue with blood pressure medication. Decrease salt intake and exercise on lisinopril 30 mg once a day (2) Hypercholesterolemia: Code(s): E78.00 - Pure hypercholesterolemia, unspecified Category: Medical Plan: Avoid fried foods, chicken skin, eggs, butter margarine, pastries and meat. Be it pork or beef they have a lot of cholesterol pravastatin 80 mg once a day LDL goal of less than 130 and triglyceride of less than 150 (3) GERD (gastroesophageal reflux disease): Code(s): K21.9 - Gastro-esophageal reflux disease without esophagitis Category: Medical Qualifiers: Esophagitis presence: without esophagitis Qualified Code(s): K21.9 - Gastro-esophageal reflux disease without esophagitis Plan: Avoid the foods that causes that usually spicy foods, tomato products, juices, coffee, soda and foods that your sensitive to. After eating do not lie down, allow 3-4 hours before in lie down. And keep the head of bed above 30 degrees to avoid the acid from going up. (4) Asthma: Comment: PFT December 2009 Code(s): J45.909 - Unspecified asthma, uncomplicated Category: Medical Qualifiers: Asthma complication type: uncomplicated Asthma persistence: intermittent Asthma severity: mild Qualified Code(s): J45.20 - Mild intermittent asthma, uncomplicated Plan: On albuterol inhaler as needed and Symbicort controller (5) Depression, major, recurrent: Comment: [facility] Dr. Miramontes and mary Anant08/2019 Code(s): F33.9 - Major depressive disorder, recurrent, unspecified Category: Medical Plan: Continue with counseling and therapy Plan Plan Patient was informed and verbally consented to the use of an ambient scribe for clinic note documentation during this visit. 1. Hypercholesterolemia The patient's LDL cholesterol has risen to 130 mg/dL, with a goal of less than 130 mg/dL. This increase is attributed to recent dietary changes over the holidays. He will continue his current dose of pravastatin 80 mg daily. A repeat lipid panel will be ordered in three months to monitor response. Dietary counseling was provided, emphasizing moderation during holidays. 2. Hypertension The patient's blood pressure is well-controlled. He will continue taking lisinopril 30 mg once a day. 3. Asthma The patient's asthma is stable, with infrequent use of his albuterol rescue inhaler. He is adherent with his Symbicort controller inhaler and rinses his mouth after use. He will continue his current medication regimen. 4. Constipation And Hemorrhoids The patient reports recent minor bleeding from hemorrhoids and uses senna for constipation. To improve bowel regularity and reduce straining, the dose of senna will be increased from one to two tablets nightly. A new prescription for senna will be sent to the pharmacy. He was also counseled on using a detachable shower head for gentle perineal hygiene to avoid irritation. 5. Renal Calculi An abdominal ultrasound showed possible small stones in the right kidney. The findings were not of significance at this time. The patient was counseled on the importance of maintaining adequate hydration to prevent stone formation. 6. Depression The patient continues to manage his depression with paroxetine, counseling, and therapy. Prescriptions for paroxetine will be continued. The patient is experiencing insurance issues that prevent him from seeing his previous psychiatrist and was advised to contact his insurance carrier for a list of in-network providers. 7. Muscle Cramps The patient reports cramps in his toes and lower legs, which may be related to dehydration, as supported by a high-normal sodium level. A magnesium level will be checked to further evaluate the cause. The patient has already increased his fluid intake. Discussion Notes I reviewed the patient's recent abdominal ultrasound, noting that while it was negative for any acute cause of his prior pain, it did suggest possible small kidney stones. I emphasized the importance of adequate water intake to prevent stone formation, which is also relevant given his high-normal sodium level suggesting dehydration. We discussed his bloodwork, highlighting the rising trend in his LDL cholesterol, which we will monitor with a repeat test in three months. We discussed management for his constipation and hemorrhoids, and I recommended increasing his senna dose to two tablets nightly to promote softer stools and reduce straining, and I will send a new prescription. I will also order a magnesium level to investigate his muscle cramps. We addressed his access to psychiatric care, and while I will continue to prescribe his paroxetine, I advised him to consult his insurance company for a list of covered psychiatrists. Patient Instructions - Continue taking all of your current medications as prescribed, including lisinopril for blood pressure, pravastatin for cholesterol, and Symbicort for asthma. - Increase your dose of senna for constipation to two tablets every night to help soften your stool and prevent straining. - A new prescription for senna will be sent to your pharmacy. - Make sure to drink plenty of water throughout the day to stay hydrated and help prevent kidney stones. - Pay attention to your diet to help manage your cholesterol levels, especially by limiting rich foods. - You will need to have your cholesterol checked again with a blood test in three months. - Continue with your counseling and therapy for depression. - Contact your insurance company, [facility], to find a psychiatrist who is covered by your plan. - Please let me know if any of your symptoms worsen or if you have any new problems. Orders: Orders Complete Blood Count Auto Diff 3 Months E78.00 - Pure hypercholesterolemia, unspecified Free T4 (Free Thyroxine) 3 Months E78.00 - Pure hypercholesterolemia, unspecified UA CC w/rflx Micro + Cult 3 Months E78.00 - Pure hypercholesterolemia, unspecified, R30.0 - Dysuria Comprehensive Met. Panel 3 Months E78.00 - Pure hypercholesterolemia, unspecified Lipid Panel 3 Months E78.00 - Pure hypercholesterolemia, unspecified Thyroid Stimulating Hormone 3 Months E78.00 - Pure hypercholesterolemia, unspecified Magnesium 3 Months E78.00 - Pure hypercholesterolemia, unspecified Medications: Changed From sennosides-docusate sodium 8.6-50 mg (Senna Plus) 1 tab-cap PO BEDTIME 30 tabs 2RF K59.00 - Constipation, unspecified To sennosides-docusate sodium 8.6-50 mg (Senna Plus) 2 tab-caps (2 x 8.6-50 mg) PO BEDTIME 60 tabs 2RF K59.00 - Constipation, unspecified
--- OUTSIDE RECORDS SUMMARY | 2025-03-03 16:55 | XMS_ITS | Patient Health Record ---
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 [employer] Notes: Nonsmoker; no sig alcohol Nonsmoker; heavy EtOH in the 90's, but presently none Nonsmoker; heavy EtOH in the 90's, but presently none Problems Problem Type SNOMED Code ICD Code Onset Dates Problem Status W/U Status Risk Notes Problem Colon cancer screening (219244519) Colon cancer screening (Z12.11) Active confirmed Problem Screening for malignant neoplasm of colon (592543495) Encounter for screening for malignant neoplasm of colon (Z12.11) Active confirmed Problem History of adenomatous polyp of colon (891671630) History of adenomatous polyp of colon (Z86.010) Active confirmed Problem History of polyp of colon (situation) (454755844) Personal history of colonic polyps (Z86.010) Active confirmed Problem Diverticular disease of colon (840702677) Diverticulosis of large intestine without perforation or abscess without bleeding (K57.30) Active confirmed Problem Gastroesophageal reflux disease (598582293) GERD (gastroesophageal reflux disease) (K21.9) Active confirmed Problem Barium swallow abnormal (466997292) Abnormal barium swallow (R93.3) Active confirmed Problem Pre-procedure evaluation check (030433250) Pre-procedural examination (Z01.818) Active confirmed Plan Of Treatment Future Test Test Name Order Date COLONOSCOPY 01/10/2018 UPPER GI ENDOSCOPY 11/16/2018 COLONOSCOPY 08/01/2023 Insurance Providers Payer Name Payer Address Payer Phone Subscriber Number Group Number Insured Name Patient Relationship to Insured Coverage Start Date Coverage End Date [facility] [address] [place], [place] [id number] [phone] [id number] 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
== END 2025-03-03 15:04 | disposition home or self-care (01) ==
LOC: HO.HMCH 14:35
PROVIDERS: PCP Internal Medicine; Visit Provider Internal Medicine
DX: I10 Essential (primary) hypertension (principal); E78.00 Pure hypercholesterolemia, unspecified; K21.9 Gastro-esophageal reflux disease without esophagitis; J45.20 Mild intermittent asthma, uncomplicated; F33.9 Major depressive disorder, recurrent, unspecified

== ENCOUNTER → 2025-03-03 14:34 | Outpatient (BNVA) | payer MEDICARE, SELFPAY | PROVIDERS: PCP Internal Medicine; Visit Provider Internal Medicine | DX: I10 Essential (primary) hypertension (principal); E78.00 Pure hypercholesterolemia, unspecified; K21.9 Gastro-esophageal reflux disease without esophagitis; J45.20 Mild intermittent asthma, uncomplicated; F33.9 Major depressive disorder, recurrent, unspecified | CPT/HCPCS: 96127; 99212 ==